=== PATIENT | male | born 1985 | race Caucasian/White ===

== ENCOUNTER 2016-05-27 15:35 | Inpatient (IN) | payer OTHER, MEDICARE ==
[~2016-05-27] VITALS: Ht 182.9 cm; Wt 113.0 kg
[~2016-05-27 15:35] MED LIST: BENT20TA PO; PANT20 PO
[2016-05-27 15:44] VITALS: BP 141/104; PULSE 114; RESP 16; TEMP 98.1; O2SAT 93
[2016-05-27] MEDS ORDERED: SODIUM CHLOR 0.9% 1000 ML INJ 1,000 ML IV SCH (16:54)
[2016-05-27 16:55] VITALS: BP 149/90; PULSE 102; RESP 18; O2SAT 98
[2016-05-27] MEDS ORDERED: PANTOPRAZOLE SODIUM 40 MG VIAL IVP ONE (17:00)
[2016-05-27] MEDS ORDERED: SODIUM CHLORIDE 0.9% FLUSH 5 ML FLUSH IVF PRN ×2 (17:00→17:30)
[2016-05-27] MEDS ORDERED: ONDANSETRON HCL 4 MG/2 ML VIAL IV PUSH ONE (17:00)
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
[2016-05-27 17:15] VITALS: O2SAT 98
[2016-05-27 17:20] LABS: CHLORIDE 107 MEQ/L (98-107); POTASSIUM 3.8 MEQ/L (3.5-5.1); SODIUM (NA) 145 MEQ/L (136-145)
[2016-05-27 17:21] LABS: HEMATOCRIT 41.5 % (39.0-51.0); MEAN CELL VOLUME 85.1 FL (80.0-100.0); MEAN CORPUSCULAR HGB CONC 32.9 % (32.0-36.0); RED BLOOD COUNT 4.88 MIL/MM3 (4.50-5.90); RED CELL DISTRIBUTION WIDTH 16.5 % (11.6-17.2); WHITE BLOOD COUNT 5.1 TH/MM3 (4.0-11.0)
[2016-05-27 17:24] LABS: ANION GAP 10 MEQ/L (5-15); BICARBONATE 28.1 MEQ/L (21.0-32.0); BLOOD UREA NITROGEN 6 MG/DL (7-18)
[2016-05-27 17:25] LABS: INTERNATIONAL NORMALIZED RATIO 1.3 RATIO; PROTHROMBIN TIME - PATIENT 14.3 SEC (9.8-11.6)
[2016-05-27 17:27] LABS: ALT (GPT) 103 U/L (12-78); AST (GOT) 233 U/L (15-37); GLOMERULAR FILTRATION RATE 125 ML/MIN (>89)
[2016-05-27 17:28] LABS: TOTAL BILIRUBIN ADULT 2.3 MG/DL (0.2-1.0)
[2016-05-27 17:29] LABS: ALKALINE PHOSPHATASE 96 U/L (45-117)
[2016-05-27 17:30] LABS: HEMO FLAGS AUTO DIFF; PLATELET COUNT 83 TH/MM3 (150-450)
--- NOTE | 2016-05-27 17:52 | RADHPO ---
EXAM DATE/TIME: 05/27/2016 17:27 [facility] COMPARISON: CHEST SINGLE AP, May 04, 2015, 20:09. INDICATIONS : Patient has had pain in abdomen for a week. Patient states has been diagnosed with cirrhosis. MEDICAL HISTORY : Hypertension. Diabetes SURGICAL HISTORY : None. ENCOUNTER: Initial ACUITY: 1 day PAIN SCORE: 9/10 LOCATION: Bilateral chest FINDINGS: The lungs are clear. Heart and pulmonary vascularity are normal. Repair of an old left clavicular f racture is noted. CONCLUSION: Negative chest for acute disease. Trip Philip MD FACR on May 27, 2016 at 17:47 Board Certified Radiologist. This report was verified electronically.
[2016-05-27 17:57] LABS: PLATELET ESTIMATE SMEAR LOW (NORMAL); PLATELET MORPHOLOGY NORMAL (NORMAL); SCAN/DIFF AUTO DIFF CONFIRMED
[2016-05-27 18:01] LABS: AUTOMATED NEUTROPHIL # 2.3 TH/MM3 (1.8-7.7); BASOPHIL % 1.6 % (0.0-2.0); EOSINOPHIL # 0.1 TH/MM3 (0-0.4); EOSINOPHIL % 2.4 % (0.0-4.0); LYMPH % 41.2 % (9.0-44.0); LYMPHOCYTE # 2.2 TH/MM3 (1.0-4.8); MONO % 10.2 % (0.0-8.0); NEUT % 44.6 % (16.0-70.0)
[2016-05-27 18:02] LABS: BASOPHIL # 0.1 TH/MM3 (0-0.2); NEUTROPHIL # MANUAL DIFF 2.3 TH/MM3 (1.8-7.7)
[2016-05-27] MEDS: OCTREOTIDE INJ 500 MCG in SODIUM CHLORID 0.9% 500 ML INJ 500 ML IV SCH (18:09)
[2016-05-27] MEDS: PANTOPRAZOLE INJ 80 MG in SODIUM CHLORIDE 0.9% INJ 100 ML IV SCH (18:43)
[2016-05-27 18:45] VITALS: BP 139/91; PULSE 94; RESP 18; O2SAT 94
--- NOTE | 2016-05-27 19:04 | RADHPO ---
EXAM DATE/TIME: 05/27/2016 18:18 [facility] COMPARISON: No previous studies available for comparison. INDICATIONS : Diffuse abdominal pain. IV CONTRAST: 95 cc Omnipaque 350 (iohexol) IV ORAL CONTRAST: No oral contrast ingested. RADIATION DOSE: 21.36 CTDIvol (mGy) MEDICAL HISTORY : Hepatitis C. Hypertension. Cirrhosis. SURGICAL HISTORY : None. ENCOUNTER: Initial ACUITY: 1 day PAIN SCALE: 8/10 LOCATION: Abdomen. TECHNIQUE: Volumetric scanning of the abdomen and pelvis was performed. Using automated exposure control and ad justment of the mA and/or kV according to patient size, radiation dose was kept as low as reasonably achievable to obtain optimal diagnostic quality images. FINDINGS: Lung bases demonstrate minimal dependent atelectasis. No acute bony abnormality. There is diffuse fatty liver. Spleen, adrenals, kidneys and pancreas unremarkable. No calcified galls tones or biliary ductal dilatation. There is mural thickening of the left colon characteristic of a mild left-sided colitis. No bowel obs truction. No free air or free fluid. There is recanalization of the periumbilical veins and some distal esophageal varices characteristic of portal venous hypertension. CONCLUSION: 1. Hepatic steatosis and heterogeneous appearance likely related to liver cirrhosis and portal hypert ension associated with periumbilical and esophageal varices. 2. Mild left-sided colitis. No obstruction, free fluid or free air. Blu Brizuela MD on May 27, 2016 at 18:58 Board Certified Radiologist. This report was verified electronically.
--- NOTE | 2016-05-27 19:29 | PD ---
Physical Exam Time Seen by Provider: 19:[address] Tobar with this patient with me to make a disposition, admission to [facility] likely. She had already discussed the patient with Dr. Berumen. He recommended the patient be sent to [facility] in case he did have significant bleeding over the weekend. He does have a history of esophageal varices. Data Data Last Documented VS Vital Signs Date Time Temp Pulse Resp B/P Pulse Ox O2 Delivery O2 Flow Rate FiO2 05/27/16 18:45 94 18 139/91 94 Room Air 05/27/16 15:44 98.1 Orders Complete Blood Count With Diff (05/27/16 16:54) Comprehensive Metabolic Panel (05/27/16 16:54) Lipase (05/27/16 16:54) Prothrombin Time / Inr (Pt) (05/27/16 16:54) Act Partial Throm Time (Ptt) (05/27/16 16:54) Urinalysis - C+S If Indicated (05/27/16 16:54) Ct Abd/Pel W Iv Contrast(Rout) (05/27/16 16:54) Iv Access Insert/Monitor (05/27/16 16:54) Ecg Monitoring (05/27/16 16:54) Oximetry (05/27/16 16:54) Pantoprazole Inj (Protonix Inj) (05/27/16 17:00) Sodium Chlor 0.9% 1000 Ml Inj (Ns 1000 M (05/27/16 16:54) Sodium Chloride 0.9% Flush (Ns Flush) (05/27/16 17:00) Electrocardiogram (05/27/16 16:54) Ondansetron Inj (Zofran Inj) (05/27/16 17:00) Alcohol (Ethanol) (05/27/16 16:56) Type And Screen (05/27/16 16:56) Chest, Single Ap (05/27/16 ) Sodium Chloride 0.9% Flush (Ns Flush) (05/27/16 17:30) Octreotide Inj (Sandostatin Inj) (05/27/16 17:30) Pantoprazole Inj (Protonix Inj) (05/27/16 17:30) Consult Gastroenterology (05/27/16 ) (Hub Use Only)Inp Phy Cons/Ref (05/27/16 ) Admit To Inpatient (05/27/16 ) Vital Signs (Adult) Q4H (05/27/16 19:20) Activity Oob With Assistance (05/27/16 19:20) ^ Welder And Fitter / Telemetry .CONTINUOUS (05/27/16 19:20) Intake + Output LUCRETIA.QSHIFT (05/27/16 19:20) Diet Npo (05/28/16 Breakfast) Sodium Chlor 0.9% 1000 Ml Inj (Ns 1000 M (05/27/16 19:20) Sodium Chloride 0.9% Flush (Ns Flush) (05/27/16 19:30) Sodium Chloride 0.9% Flush (Ns Flush) (05/27/16 21:00) Ondansetron Inj (Zofran Inj) (05/27/16 19:30) Bisacodyl Supp (Dulcolax Supp) (05/27/16 19:30) Comprehensive Metabolic Panel (05/28/16 06:00) Complete Blood Count With Diff (05/28/16 06:00) Pharmacologic Contraindication (05/27/16 19:20) Morphine Inj (Morphine Inj) (05/27/16 19:30) Oxycodone (Roxicodone) (05/27/16 19:30) Inpatient Certification (05/27/16 ) ^ Initiate Protocol (05/27/16 19:20) ^ Instruction (05/27/16 19:20) Notify Md To Reorder (05/27/16 19:30) Chlorhexidine 2% Cloth (Chlorhexidine 2% (05/28/16 04:00) Chlorhexidine 2% Cloth (Chlorhexidine 2% (05/27/16 19:30) Mrsa Pcr Surveillance (05/27/16 19:20) Consult Oceanographer Assistant (05/27/16 ) Labs Laboratory Tests Test 05/27/16 17:05 White Blood Count 5.1 TH/MM3 Red Blood Count 4.88 MIL/MM3 Hemoglobin 13.7 GM/DL Hematocrit 41.5 % Mean Corpuscular Volume 85.1 FL Mean Corpuscular Hemoglobin 28.0 PG Mean Corpuscular Hemoglobin 32.9 % Concent Red Cell Distribution Width 16.5 % Platelet Count 83 TH/MM3 Mean Platelet Volume 10.7 FL Neutrophils (%) (Auto) 44.6 % Lymphocytes (%) (Auto) 41.2 % Monocytes (%) (Auto) 10.2 % Eosinophils (%) (Auto) 2.4 % Basophils (%) (Auto) 1.6 % Neutrophils # (Auto) 2.3 TH/MM3 Lymphocytes # (Auto) 2.2 TH/MM3 Monocytes # (Auto) 0.5 TH/MM3 Eosinophils # (Auto) 0.1 TH/MM3 Basophils # (Auto) 0.1 TH/MM3 CBC Comment AUTO DIFF Neutrophils # (Manual) 2.3 TH/MM3 Differential Comment AUTO DIFF CONFIRMED Platelet Estimate LOW Platelet Morphology Comment NORMAL Red Cell Morphology Comment NORMAL Prothrombin Time 14.3 SEC Prothromb Time International 1.3 RATIO Ratio Activated Partial 32.0 SEC Thromboplast Time Sodium Level 145 MEQ/L Potassium Level 3.8 MEQ/L Chloride Level 107 MEQ/L Carbon Dioxide Level 28.1 MEQ/L Anion Gap 10 MEQ/L Blood Urea Nitrogen 6 MG/DL Creatinine 0.73 MG/DL Estimat Glomerular Filtration 125 ML/MIN Rate Random Glucose 100 MG/DL Calcium Level 9.1 MG/DL Total Bilirubin 2.3 MG/DL Aspartate Amino Transf 233 U/L (AST/SGOT) Alanine Aminotransferase 103 U/L (ALT/SGPT) Alkaline Phosphatase 96 U/L Total Protein 9.1 GM/DL Albumin 3.8 GM/DL Lipase 255 U/L Ethyl Alcohol Level 335 MG/DL Blood Type A POSITIVE Antibody Screen NEGATIVE MDM Medical Record Reviewed: Yes Supervised Visit with MICHAEL: Yes Differential Diagnosis Alcohol gastritis, bleeding from esophageal varices, alcohol intoxication, ulcer bleeding, anemia, electrolyte disorder, elevated liver enzymes, coagulopathy from cirrhosis, cirrhosis Narrative Course The patient may have alcohol gastritis at this time. He needs to be admitted because of the threat of sudden onset of massive bleeding with his varices. He also has cirrhosis with coagulopathy from the cirrhosis. I discussed the patient with Dr. Miranda, the patient will be admitted to [facility] in [facility]. Dr. De La Fuente will be consulting. Physician Communication Physician Communication I discussed the patient with Dr. Miranda. Diagnosis Primary Impression: GI bleed Additional Impressions: Alcohol abuse Cirrhosis with alcoholism Alcohol intoxication Coagulopathy Admitting Information Admitting Physician Requests: Admit Scripts Unable to Obtain Active Prescriptions or Reported Meds Edward Baeza MD May 27, 2016 19:29
[2016-05-27] MEDS ORDERED: MISCELLANEOUS NURSING INFORMATION XX SCH (19:30)
[2016-05-27] MEDS ORDERED: LORazepam 2 MG/ML VIAL IV PUSH PRN ×4 (19:30)
[2016-05-27] MEDS ORDERED: FLUMAZENIL 0.5 MG/5 ML VIAL IV PUSH PRN (19:30)
[2016-05-27] MEDS ORDERED: CHLORHEXIDINE GLUCONATE 2 % 1 PACK (2 CLOTHS) TOP PRN (19:30)
[2016-05-27] MEDS ORDERED: BISACODYL 10 MG SUPP PR PRN (19:30)
[2016-05-27] MEDS ORDERED: HALOPERIDOL LACTATE 5 MG/ML AMP IM PRN (19:30)
[2016-05-27] MEDS ORDERED: LORazepam 1 MG TAB PO PRN (19:30)
[2016-05-27] MEDS ORDERED: LORazepam 2 MG TAB PO PRN (19:30)
[2016-05-27] MEDS: SODIUM CHLOR 0.9% 1000 ML INJ 1,000 ML IV SCH (20:42)
[2016-05-27] MEDS: SODIUM CHLORIDE 0.9% FLUSH 5 ML FLUSH FLUSH SCH (21:00)
[2016-05-27 21:14] LABS: BLOOD, URINE NEG (NEG); GLUCOSE,URINE NEG (NEG); KETONE, URINE NEG (NEG); NITRITE,URINE NEG (NEG)
[2016-05-27 21:24] LABS: COMMENT (UR) CULT NOT INDICATED; CULTURE IF INDICATED CULT NOT INDICATED; METHOD OF COLLECTION VOIDED; URINE COLOR YELLOW (YELLW/STRAW); WBC, URINE 0-2 /hpf (0-5)
[2016-05-27 22:00] VITALS: BP 116/83; PULSE 85; RESP 16; TEMP 98.2; O2SAT 97
[2016-05-27] MEDS ORDERED: IOHEXOL 350 MG/ML 10 ML VIAL (for RAD DIAG) IV ONE (22:19)
[2016-05-27] MEDS: THIAMINE INJ 100 MG in SODIUM CHLORIDE 0.9% INJ 100 ML IV SCH (22:36)
[2016-05-27] MEDS: MULTIVITAMIN INJ 10 ML, FOLIC ACID INJ 1 MG in SODIUM CHLORID 0.9% 500 ML INJ 500 ML IV SCH (22:36)
[2016-05-27 23:33] VITALS: BP 118/84; PULSE 85; RESP 16; O2SAT 97; O2SAT 98
[2016-05-28] VITALS (9 sets, daily range): BP systolic 121–150; BP diastolic 74–95; PULSE 68–98; RESP 18–22; TEMP 97.1–98.2; O2SAT 94–98
[2016-05-28] MEDS: MORPHINE SULFATE 4 MG/ML INJ IV PRN ×6 (00:50→20:48)
[2016-05-28] MEDS: CHLORHEXIDINE GLUCONATE 2 % 1 PACK (2 CLOTHS) TOP SCH (03:20)
[2016-05-28] MEDS: PANTOPRAZOLE INJ 80 MG in SODIUM CHLORIDE 0.9% INJ 100 ML IV SCH ×3 (04:59→23:30)
[2016-05-28] MEDS: OCTREOTIDE INJ 500 MCG in SODIUM CHLORID 0.9% 500 ML INJ 500 ML IV SCH ×3 (05:00→23:30)
[2016-05-28] MEDS: SODIUM CHLOR 0.9% 1000 ML INJ 1,000 ML IV SCH ×2 (05:20→16:08)
[2016-05-28] MEDS: SODIUM CHLORIDE 0.9% FLUSH 5 ML FLUSH FLUSH SCH ×2 (08:43→20:48)
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
[2016-05-28 13:42] LABS: AUTOMATED NEUTROPHIL # 2.4 TH/MM3 (1.8-7.7); BASOPHIL # 0.1 TH/MM3 (0-0.2); EOSINOPHIL # 0.1 TH/MM3 (0-0.4); EOSINOPHIL % 2.1 % (0.0-4.0); HEMATOCRIT 38.8 % (39.0-51.0); LYMPHOCYTE # 1.4 TH/MM3 (1.0-4.8); MEAN CELL VOLUME 87.1 FL (80.0-100.0); MEAN CORPUSCULAR HEMOGLOBIN 28.9 PG (27.0-34.0); MEAN CORPUSCULAR HGB CONC 33.2 % (32.0-36.0); MONO % 12.2 % (0.0-8.0); NEUT % 52.7 % (16.0-70.0); PLATELET COUNT 70 TH/MM3 (150-450); RED BLOOD COUNT 4.46 MIL/MM3 (4.50-5.90); RED CELL DISTRIBUTION WIDTH 17.1 % (11.6-17.2); WHITE BLOOD COUNT 4.5 TH/MM3 (4.0-11.0)
[2016-05-28 13:49] LABS: HEMO FLAGS AUTO DIFF
[2016-05-28 14:10] LABS: ALKALINE PHOSPHATASE 94 U/L (45-117); ALT (GPT) 98 U/L (12-78); ANION GAP 10 MEQ/L (5-15); AST (GOT) 216 U/L (15-37); BICARBONATE 25.4 MEQ/L (21.0-32.0); BLOOD UREA NITROGEN 7 MG/DL (7-18); CHLORIDE 104 MEQ/L (98-107); GLOMERULAR FILTRATION RATE 111 ML/MIN (>89); POTASSIUM 3.9 MEQ/L (3.5-5.1); SODIUM (NA) 139 MEQ/L (136-145); TOTAL BILIRUBIN ADULT 2.6 MG/DL (0.2-1.0)
[2016-05-28 14:11] LABS: FERRITIN 90 NG/ML (26-388); TRANSFERRIN IRON PROFILE 286 MG/DL (200-360)
[2016-05-28 14:31] LABS: PLATELET ESTIMATE SMEAR LOW (NORMAL); PLATELET MORPHOLOGY NORMAL (NORMAL)
[2016-05-28 14:32] LABS: SCAN/DIFF AUTO DIFF CONFIRMED
[2016-05-28] MEDS: ONDANSETRON HCL 4 MG/2 ML VIAL IVP PRN (15:10)
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
[2016-05-28] MEDS: CIPROFLOXACIN 400 MG PREMIX 200 ML IV SCH (16:08)
[2016-05-28] MEDS: metroNIDAZOLE 500 MG INJ 100 ML IV SCH ×2 (16:08→23:55)
[2016-05-28 16:49] LABS: HEMATOCRIT 36.2 % (39.0-51.0)
[2016-05-28 16:53] LABS: REVIEW FLAG FINAL
[2016-05-28] MEDS: SODIUM CHLORIDE 0.9% FLUSH 5 ML FLUSH FLUSH PRN (20:48)
[2016-05-28] MEDS: MULTIVITAMIN INJ 10 ML, FOLIC ACID INJ 1 MG in SODIUM CHLORID 0.9% 500 ML INJ 500 ML IV SCH (22:01)
[2016-05-28] MEDS: THIAMINE INJ 100 MG in SODIUM CHLORIDE 0.9% INJ 100 ML IV SCH (22:01)
[2016-05-28 23:11] LABS: HEMATOCRIT 35.2 % (39.0-51.0)
[2016-05-28 23:21] LABS: REVIEW FLAG FINAL
[2016-05-29] VITALS (7 sets, daily range): BP systolic 121–140; BP diastolic 71–90; PULSE 72–82; RESP 18–20; TEMP 96.9–97.7; O2SAT 95–97
[2016-05-29] MEDS: SODIUM CHLORIDE 0.9% FLUSH 5 ML FLUSH FLUSH PRN ×3 (00:08→22:05)
[2016-05-29] MEDS: MORPHINE SULFATE 4 MG/ML INJ IV PRN ×7 (00:09→22:05)
[2016-05-29] MEDS: OCTREOTIDE INJ 500 MCG in SODIUM CHLORID 0.9% 500 ML INJ 500 ML IV SCH ×3 (00:46→19:30)
[2016-05-29] MEDS: SODIUM CHLOR 0.9% 1000 ML INJ 1,000 ML IV SCH ×4 (01:20→22:08)
[2016-05-29] MEDS: CHLORHEXIDINE GLUCONATE 2 % 1 PACK (2 CLOTHS) TOP SCH (04:00)
[2016-05-29] MEDS: CIPROFLOXACIN 400 MG PREMIX 200 ML IV SCH ×2 (04:55→15:11)
[2016-05-29] MEDS: PANTOPRAZOLE INJ 80 MG in SODIUM CHLORIDE 0.9% INJ 100 ML IV SCH ×3 (06:15→22:07)
[2016-05-29 07:02] LABS: HEMATOCRIT 36.4 % (39.0-51.0); MEAN CELL VOLUME 86.8 FL (80.0-100.0); MEAN CORPUSCULAR HEMOGLOBIN 29.4 PG (27.0-34.0); MEAN CORPUSCULAR HGB CONC 33.9 % (32.0-36.0); PLATELET COUNT 50 TH/MM3 (150-450); RED BLOOD COUNT 4.19 MIL/MM3 (4.50-5.90); RED CELL DISTRIBUTION WIDTH 17.4 % (11.6-17.2); WHITE BLOOD COUNT 3.4 TH/MM3 (4.0-11.0)
[2016-05-29 07:11] LABS: REVIEW FLAG FINAL
[2016-05-29 07:16] LABS: INTERNATIONAL NORMALIZED RATIO 1.4 RATIO; PROTHROMBIN TIME - PATIENT 15.2 SEC (9.8-11.6)
[2016-05-29 07:28] LABS: ALKALINE PHOSPHATASE 78 U/L (45-117); ALT (GPT) 72 U/L (12-78); ANION GAP 7 MEQ/L (5-15); AST (GOT) 140 U/L (15-37); BICARBONATE 26.9 MEQ/L (21.0-32.0); BLOOD UREA NITROGEN 7 MG/DL (7-18); CHLORIDE 103 MEQ/L (98-107); GLOMERULAR FILTRATION RATE 136 ML/MIN (>89); POTASSIUM 3.4 MEQ/L (3.5-5.1); SODIUM (NA) 137 MEQ/L (136-145); TOTAL BILIRUBIN ADULT 3.2 MG/DL (0.2-1.0)
[2016-05-29] MEDS: metroNIDAZOLE 500 MG INJ 100 ML IV SCH ×2 (08:49→15:11)
[2016-05-29] MEDS: SODIUM CHLORIDE 0.9% FLUSH 5 ML FLUSH FLUSH SCH ×2 (08:49→22:05)
[2016-05-29] MEDS ORDERED: POTASSIUM CHLORIDE 25 MEQ EFFERVESCENT TAB PO ONE (09:00)
[2016-05-29] MEDS: ONDANSETRON HCL 4 MG/2 ML VIAL IVP PRN (10:52)
[2016-05-29] MEDS ORDERED: PEG (High)/E-LYTE SOLN 4000 ML BTL PO ONE (16:00)
[2016-05-29] MEDS ORDERED: METOCLOPRAMIDE HCL 10 MG/2 ML VIAL IV PUSH ONE (16:15)
--- NOTE | 2016-05-29 16:22 | HHI.PR ---
Subjective Remarks The patient has been vomiting. He has been trying to drink the GoLYTELY prep. He has not noticed any blood in the vomitus. He has been ambulating. Discussed with nursing. Objective Vitals Vital Signs Date Time Temp Pulse Resp B/P Pulse Ox O2 Delivery O2 Flow Rate FiO2 05/29/16 15:19 97.4 73 18 128/79 97 05/29/16 11:47 97.7 82 19 121/86 97 05/29/16 09:55 96.9 72 18 140/90 96 05/29/16 08:00 74 05/29/16 04:15 97.6 76 20 121/79 95 05/28/16 23:59 97.1 78 20 121/80 97 05/28/16 20:04 84 05/28/16 19:30 98.2 78 22 150/95 94 05/28/16 16:55 97.7 84 22 136/85 97 I/O 05/28/16 05/28/16 05/28/16 05/29/16 05/29/16 05/29/16 07:00 15:00 23:00 07:00 15:00 23:00 Intake Total 2597 ml 2120 ml Output Total 1350 ml 1900 ml Balance 1247 ml 220 ml Intake Oral 120 ml 500 ml IV Total 2477 ml 1620 ml Output Urine Total 1350 ml 1900 ml Result Diagram: 05/29/16 0645 05/29/16 0645 Imaging Last Impressions Abdomen/Pelvis CT 05/27/16 1654 Signed Impressions: Service Date/Time: Friday, May 27, 2016 18:18 - CONCLUSION: 1. Hepatic steatosis and heterogeneous appearance likely related to liver cirrhosis and portal hypertension associated with periumbilical and esophageal varices. 2. Mild left-sided colitis. No obstruction, free fluid or free air. Blu Brizuela MD Objective Remarks GENERAL: This is a well-nourished, well-developed patient, in no apparent distress. SKIN: No rashes, ecchymoses or lesions. Cool and dry. HEAD: Atraumatic. Normocephalic. No temporal or scalp tenderness. EYES: Pupils equal round and reactive. Extraocular motions intact. No scleral icterus. No injection or drainage. ENT: Nose without bleeding, purulent drainage or septal hematoma. Throat without erythema, tonsillar hypertrophy or exudate. Uvula midline. Airway patent. NECK: Trachea midline. No JVD or lymphadenopathy. Supple, nontender, no meningeal signs. CARDIOVASCULAR: Regular rate and rhythm without murmurs, gallops, or rubs. RESPIRATORY: Clear to auscultation. Breath sounds equal bilaterally. No wheezes , rales, or rhonchi. GASTROINTESTINAL: Abdomen soft, diffusely tender to palpation. No guarding or rebound. MUSCULOSKELETAL: Trace edema in the lower extremities. NEUROLOGICAL: Awake and alert. Cranial nerves II through XII intact. Motor and sensory grossly within normal limits. Five out of 5 muscle strength in all muscle groups. Normal speech. Medications and IVs Current Medications Medications (Trade) Dose Ordered Sig/Rowan Route Start Time Stop Time Status Last Admin Octreotide Acetate 500 mcg/ Sodium Chloride 500.5 ml @ 50 mls/hr Q10H IV 05/27/16 17:30 05/29/16 10:57 Pantoprazole Sodium 80 mg/ Sodium Chloride 100 ml @ 10 mls/hr Q10H IV 05/27/16 17:30 05/29/16 15:12 (NS 1000 ml Inj) 1,000 ml @ 100 mls/hr Q10H IV 05/27/16 19:20 05/29/16 12:01 (NS Flush) 2 ml UNSCH PRN FLUSH 05/27/16 19:30 05/29/16 04:56 (NS Flush) 2 ml BID FLUSH 05/27/16 21:00 05/29/16 08:49 (Zofran Inj) 4 mg Q6H PRN IVP 05/27/16 19:30 05/29/16 10:52 (Dulcolax Supp) 10 mg DAILY PRN RI 05/27/16 19:30 (Morphine Inj) 2 mg Q3H PRN IV 05/27/16 19:30 05/29/16 15:12 (Roxicodone) 5 mg Q4H PRN PO 05/27/16 19:30 05/28/16 15:10 Miscellaneous Information 1 Q361D XX 05/27/16 19:30 05/27/16 19:30 (Chlorhexidine 2% Cloth) 3 pack Taper DAILY@04 TOP 05/28/16 04:00 05/24/17 03:59 Chlorhexidine Gluconate 3 pack 3 pack UNSCH PRN TOP 05/27/16 19:30 Multivitamins 10 ml/Folic Acid 1 mg/Sodium Chloride 510.2 ml @ 125 mls/hr Q24H IV 05/27/16 21:00 06/01/16 20:59 05/28/16 22:01 (Thiamine Inj/NS Inj) 101 ml @ 100 mls/hr Q24H IV 05/27/16 21:00 05/30/16 20:59 05/28/16 22:01 (Vitamin B1) 100 mg DAILY PO 05/30/16 09:00 (Ativan) 1 mg Q4H PRN PO 05/27/16 19:30 05/28/16 02:31 (Ativan Inj) 1 mg Q4H PRN IV PUSH 05/27/16 19:30 (Ativan) 2 mg Q2H PRN PO 05/27/16 19:30 (Ativan Inj) 2 mg Q2H PRN IV PUSH 05/27/16 19:30 (Ativan Inj) 2 mg Q1H PRN IV PUSH 05/27/16 19:30 (Ativan Inj) 2 mg Q15M PRN IV PUSH 05/27/16 19:30 Haloperidol Lactate 2 mg 2 mg Q15M PRN IM 05/27/16 19:30 Metronidazole 100 ml @ 100 mls/hr Q8H IV 05/28/16 16:00 05/29/16 15:11 (Cipro 400 Mg Premix) 200 ml @ 200 mls/hr Q12H IV 05/28/16 17:00 05/29/16 15:11 A/P Assessment and Plan GIB The patient presents with blood in his stool as well as blood in his vomitus. GI consult appreciated. - Clear liquid diet for now. GoLYTELY preparation started. - Octreotide and Protonix drips. - Likely EGD and colonoscopy on Monday. - Follow CBC and transfuse as needed. Liver cirrhosis/ abdominal pain/ nausea/ HCV The patient was diagnosed at [facility] last month. CT abdomen: Hepatic steatosis and heterogeneous appearance likely related to liver cirrhosis and portal hypertension associated with periumbilical and esophageal varices; Mild left- sided colitis; No obstruction, free fluid or free air. - Follow up with GI. - Pain control as needed. - Antiemetics as needed. - start Cipro/ Flagyl for colitis. - follow culture data. - alcohol cessation instruction. Thrombocytopenia Likely s/t cirrhosis. Platelet count has been decreasing. - trend CBC and transfuse as needed. Alcohol The pt says he quit but he recently binged. - [facility] protocol. - cessation instruction. Hypokalemia Secondary to nausea and vomiting. - Replete and monitor. PPx: SCDs; PPI Discharge Planning Awaiting clinical improvement. Hunter Ogden DO May 29, 2016 16:22
[2016-05-29] MEDS: MULTIVITAMIN INJ 10 ML, FOLIC ACID INJ 1 MG in SODIUM CHLORID 0.9% 500 ML INJ 500 ML IV SCH (22:05)
[2016-05-29] MEDS: THIAMINE INJ 100 MG in SODIUM CHLORIDE 0.9% INJ 100 ML IV SCH (22:06)
[2016-05-30] VITALS (8 sets, daily range): BP systolic 116–147; BP diastolic 66–96; PULSE 73–85; RESP 16–20; TEMP 95.8–98.3; O2SAT 95–97
[2016-05-30] MEDS: SODIUM CHLORIDE 0.9% FLUSH 5 ML FLUSH FLUSH PRN (03:27)
[2016-05-30] MEDS: MORPHINE SULFATE 4 MG/ML INJ IV PRN ×5 (03:29→20:34)
[2016-05-30] MEDS: metroNIDAZOLE 500 MG INJ 100 ML IV SCH ×3 (03:30→15:45)
[2016-05-30] MEDS: CHLORHEXIDINE GLUCONATE 2 % 1 PACK (2 CLOTHS) TOP SCH (03:31)
[2016-05-30] MEDS: CIPROFLOXACIN 400 MG PREMIX 200 ML IV SCH ×2 (04:33→16:46)
[2016-05-30 04:34] LABS: HEMATOCRIT 36.1 % (39.0-51.0); MEAN CELL VOLUME 87.3 FL (80.0-100.0); MEAN CORPUSCULAR HEMOGLOBIN 28.9 PG (27.0-34.0); MEAN CORPUSCULAR HGB CONC 33.1 % (32.0-36.0); PLATELET COUNT 52 TH/MM3 (150-450); RED BLOOD COUNT 4.13 MIL/MM3 (4.50-5.90); RED CELL DISTRIBUTION WIDTH 16.6 % (11.6-17.2); WHITE BLOOD COUNT 3.7 TH/MM3 (4.0-11.0)
[2016-05-30 04:35] LABS: REVIEW FLAG FINAL
[2016-05-30] MEDS: OCTREOTIDE INJ 500 MCG in SODIUM CHLORID 0.9% 500 ML INJ 500 ML IV SCH ×3 (04:35→15:46)
[2016-05-30 05:05] LABS: BICARBONATE 24.1 MEQ/L (21.0-32.0); MAGNESIUM 1.8 MG/DL (1.5-2.5); POTASSIUM 3.6 MEQ/L (3.5-5.1)
[2016-05-30] MEDS: PANTOPRAZOLE INJ 80 MG in SODIUM CHLORIDE 0.9% INJ 100 ML IV SCH ×2 (05:30→15:45)
[2016-05-30] MEDS: SODIUM CHLOR 0.9% 1000 ML INJ 1,000 ML IV SCH (08:23)
[2016-05-30] MEDS: THIAMINE HCL 100 MG TAB PO SCH (08:24)
[2016-05-30] MEDS: SODIUM CHLORIDE 0.9% FLUSH 5 ML FLUSH FLUSH SCH ×2 (09:00→21:00)
--- NOTE | 2016-05-30 09:32 | HHI.PR ---
Subjective Remarks Follow up for GI bleed. Patient did have episode of vomiting overnight, denies any more blood in his vomitus. He completed bowel prep, states his stools are clear and yellow. He has some lower abdominal cramping today, but feels slightly less because he slept poorly. Had quit alcohol for 1 month, but had a binge prior to admission. He denies any tremors or feelings of withdrawal. Going for EGD today. Objective Vitals Vital Signs Date Time Temp Pulse Resp B/P Pulse Ox O2 Delivery O2 Flow Rate FiO2 05/30/16 09:11 97.6 76 16 129/96 96 05/30/16 08:40 97.6 76 18 129/87 96 05/30/16 04:31 98.3 81 18 116/66 95 05/30/16 00:04 96.4 73 20 133/69 95 05/29/16 20:40 97.1 75 20 133/71 97 05/29/16 20:16 72 05/29/16 15:19 97.4 73 18 128/79 97 05/29/16 11:47 97.7 82 19 121/86 97 05/29/16 09:55 96.9 72 18 140/90 96 Result Diagram: 05/30/16 0417 05/30/16 0417 Imaging Last Impressions Abdomen/Pelvis CT 05/27/16 1654 Signed Impressions: Service Date/Time: Friday, May 27, 2016 18:18 - CONCLUSION: 1. Hepatic steatosis and heterogeneous appearance likely related to liver cirrhosis and portal hypertension associated with periumbilical and esophageal varices. 2. Mild left-sided colitis. No obstruction, free fluid or free air. Blu Brizuela MD Chest X-Ray 05/27/16 0000 Signed Impressions: Service Date/Time: Friday, May 27, 2016 17:27 - CONCLUSION: Negative chest for acute disease. Trip Philip MD FACR Objective Remarks GENERAL: Well-developed well-nourished. In no acute distress. SKIN: Warm and dry. No lesions noted. HEENT: Normocephalic. Pupils equal and round. Mucous membranes pink and moist. CARDIOVASCULAR: Regular rate and rhythm. No murmur appreciated. RESPIRATORY: No accessory muscle use. Clear to auscultation. Breath sounds equal bilaterally. GASTROINTESTINAL: Abdomen soft, generalized upper abdomen TTP, nondistended. Bowel sounds x4. MUSCULOSKELETAL: No obvious deformities. No clubbing or cyanosis. No edema. NEUROLOGICAL: Awake and alert. No focal neurological deficits. Moves upper and lower extremities spontaneously. Normal speech. PSYCHIATRIC: Appropriate mood and affect; insight and judgment normal. A/P Problem List: (1) GI bleed ICD Code: K92.2 Status: Acute (2) Cirrhosis with alcoholism ICD Code: K70.30 Status: Chronic (3) Abdominal pain ICD Code: R10.9 Status: Acute Assessment and Plan GIB The patient presents with blood in his stool as well as blood in his vomitus. GI consult appreciated. - Diet per GI - Octreotide and Protonix drips. - EGD and colonoscopy. - Follow CBC and transfuse as needed, blood count currently stable. - Supportive care, IVF, antiemetics Liver cirrhosis/ abdominal pain/ nausea/ HCV The patient was diagnosed at [facility] last month. CT abdomen: Hepatic steatosis and heterogeneous appearance likely related to liver cirrhosis and portal hypertension associated with periumbilical and esophageal varices; Mild left- sided colitis; No obstruction, free fluid or free air. - Follow up with GI. - Pain control as needed. - Antiemetics as needed. - Continue Cipro/ Flagyl for colitis. Thrombocytopenia Likely s/t cirrhosis. Platelet count stable overnight - trend CBC and transfuse as needed. Alcohol The pt says he quit but he recently binged. - [facility] protocol. - cessation counseling Hypokalemia Secondary to nausea and vomiting. -Replaced, within normal limits Hyperglycemia. Improved PPx: SCDs; PPI Written by Abdulkadir Esquivel, acting as scribe for Dr. Young on 05/30/16 at 09:32. The documentation accurately reflects the work performed [id number] by me on at [id number] Discharge Planning Disposition pending clinical course Problem Qualifiers (1) GI bleed: Qualified Code: K92.2 - Gastrointestinal hemorrhage, unspecified gastrointestinal hemorrhage type (2) Cirrhosis with alcoholism: Qualified Code: K70.30 - Alcoholic cirrhosis of liver without ascites (3) Abdominal pain: Qualified Code: R10.10 - Pain of upper abdomen Abdulkadir Esquivel May 30, 2016 09:32 Molina Young MD May 30, 2016 16:08
[2016-05-30 14:05] LABS: ANA SCREEN NEG (NEG)
[2016-05-30] MEDS ORDERED: PROPOFOL 200 MG/20 ML AMP IV ONE (16:51)
[2016-05-30] MEDS: MULTIVITAMIN INJ 10 ML, FOLIC ACID INJ 1 MG in SODIUM CHLORID 0.9% 500 ML INJ 500 ML IV SCH (20:35)
--- NOTE | 2016-05-30 23:01 | EKG ---
Date Performed: 05/27/2016 Time Performed: 17:06:26 PTAGE: 31 years EKG: Sinus rhythm Inferior T wave changes are nonspecific Borderline ECG PREVIOUS TRACING : 05/04/2015 20.28 Compared to the previous tracing, rate has decreased DOCTOR: Cuauhtemoc Soto Interpretating Date/Time 05/30/2016 22:59:23
[2016-05-31 00:12] VITALS: BP 124/65; PULSE 74; RESP 18; TEMP 98.3; O2SAT 99
[2016-05-31] MEDS: metroNIDAZOLE 500 MG INJ 100 ML IV SCH ×2 (00:16→08:15)
[2016-05-31] MEDS: MORPHINE SULFATE 4 MG/ML INJ IV PRN (02:45)
[2016-05-31] MEDS: CHLORHEXIDINE GLUCONATE 2 % 1 PACK (2 CLOTHS) TOP SCH (04:00)
[2016-05-31 04:15] VITALS: BP 155/91; PULSE 72; RESP 20; TEMP 97.6; O2SAT 94
[2016-05-31] MEDS: CIPROFLOXACIN 400 MG PREMIX 200 ML IV SCH (05:30)
[2016-05-31 07:01] LABS: AUTOMATED NEUTROPHIL # 2.3 TH/MM3 (1.8-7.7); BASOPHIL % 0.7 % (0.0-2.0); EOSINOPHIL # 0.2 TH/MM3 (0-0.4); EOSINOPHIL % 4.5 % (0.0-4.0); HEMATOCRIT 37.7 % (39.0-51.0); LYMPH % 26.6 % (9.0-44.0); LYMPHOCYTE # 1.1 TH/MM3 (1.0-4.8); MEAN CELL VOLUME 87.2 FL (80.0-100.0); MEAN CORPUSCULAR HEMOGLOBIN 29.4 PG (27.0-34.0); MEAN CORPUSCULAR HGB CONC 33.7 % (32.0-36.0); MONO % 12.8 % (0.0-8.0); NEUT % 55.4 % (16.0-70.0); PLATELET COUNT 58 TH/MM3 (150-450); RED BLOOD COUNT 4.32 MIL/MM3 (4.50-5.90); RED CELL DISTRIBUTION WIDTH 16.9 % (11.6-17.2); WHITE BLOOD COUNT 4.2 TH/MM3 (4.0-11.0)
[2016-05-31 07:04] LABS: HEMO FLAGS AUTO DIFF
[2016-05-31 07:17] LABS: BICARBONATE 24.8 MEQ/L (21.0-32.0); MAGNESIUM 1.7 MG/DL (1.5-2.5); POTASSIUM 3.6 MEQ/L (3.5-5.1)
[2016-05-31 08:00] VITALS: BP 123/77; PULSE 79; RESP 20; TEMP 97.1; O2SAT 97
[2016-05-31] MEDS: THIAMINE HCL 100 MG TAB PO SCH (08:14)
[2016-05-31] MEDS: SODIUM CHLORIDE 0.9% FLUSH 5 ML FLUSH FLUSH SCH (08:15)
--- NOTE | 2016-05-31 08:33 | HHI.PR ---
Subjective Remarks Follow-up hematemesis and diarrhea. Patient without recurrence of hematemesis and diarrhea. Tolerating by mouth. Soft BM today. Still having intermittent mild abdominal pain. Seen with mother. Discussed with RN Objective Vitals Vital Signs Date Time Temp Pulse Resp B/P Pulse Ox O2 Delivery O2 Flow Rate FiO2 05/31/16 04:15 97.6 72 20 155/91 94 05/31/16 03:35 20 05/31/16 00:12 98.3 74 18 124/65 99 05/30/16 21:07 98.0 75 20 134/77 96 05/30/16 15:55 96.1 81 18 143/96 96 05/30/16 11:27 95.8 85 19 147/83 97 05/30/16 11:10 76 16 133/69 95 05/30/16 10:58 95 16 140/87 95 05/30/16 10:51 97.8 97 16 137/87 94 05/30/16 09:11 97.6 76 16 129/96 96 05/30/16 08:40 97.6 76 18 129/87 96 I/O 05/30/16 05/30/16 05/30/16 05/31/16 05/31/16 05/31/16 07:00 15:00 23:00 07:00 15:00 23:00 Intake Total 400 ml Balance 400 ml Other 400 ml Result Diagram: 05/31/16 0641 05/31/16 0641 Imaging Last Impressions Abdomen/Pelvis CT 05/27/16 1654 Signed Impressions: Service Date/Time: Friday, May 27, 2016 18:18 - CONCLUSION: 1. Hepatic steatosis and heterogeneous appearance likely related to liver cirrhosis and portal hypertension associated with periumbilical and esophageal varices. 2. Mild left-sided colitis. No obstruction, free fluid or free air. Blu Brizuela MD Chest X-Ray 05/27/16 0000 Signed Impressions: Service Date/Time: Friday, May 27, 2016 17:27 - CONCLUSION: Negative chest for acute disease. Trip Philip MD FACR Objective Remarks GENERAL: This is a well-nourished, well-developed patient, in no apparent distress. CARDIOVASCULAR: Regular rate and rhythm without murmurs, gallops, or rubs. RESPIRATORY: Clear to auscultation. Breath sounds equal bilaterally. No wheezes , rales, or rhonchi. GASTROINTESTINAL: Abdomen soft, non-tender, nondistended. Normal active bowel sounds MUSCULOSKELETAL: Extremities without clubbing, cyanosis, or edema. NEURO: Alert & Oriented x4 to person, place, time, situation. Moves all ext x4 Procedures EGD and colonoscopy A/P Problem List: (1) GI bleed ICD Code: K92.2 Status: Acute (2) Cirrhosis with alcoholism ICD Code: K70.30 Status: Chronic (3) Abdominal pain ICD Code: R10.9 Status: Acute Assessment and Plan GIB The patient presents with blood in his stool as well as blood in his vomitus. GI consult appreciated. - Diet per GI -heart healthy - Octreotide and Protonix drips discontinued, continue by mouth PPI. - EGD and colonoscopy which showed gastritis and esophagitis status post biopsy , internal and external hemorrhoids. Antireflux mechanisms discussed with the patient. Follow up pathology. - Follow CBC and transfuse as needed, blood count currently stable. - Supportive care, IVF, antiemetics Liver cirrhosis/ abdominal pain/ nausea/ HCV The patient was diagnosed at [facility] last month. CT abdomen: Hepatic steatosis and heterogeneous appearance likely related to liver cirrhosis and portal hypertension associated with periumbilical and esophageal varices; Mild left- sided colitis; No obstruction, free fluid or free air. - Follow up with GI. - Pain control as needed. Counseled regarding narcotics - Antiemetics as needed. - Continue Cipro/ Flagyl for colitis, switch to by mouth. Stool studies ordered none submitted - Start beta magda Thrombocytopenia Likely s/t cirrhosis. Platelet count stable overnight - trend CBC and transfuse as needed. Alcohol The pt says he quit but he recently binged. - [facility] protocol. - cessation counseling Hypokalemia Secondary to nausea and vomiting. -Replaced, within normal limits Hyperglycemia. Improved PPx: SCDs; PPI Discharge Planning Stable for discharge Problem Qualifiers (1) GI bleed: Qualified Code: K92.2 - Gastrointestinal hemorrhage, unspecified gastrointestinal hemorrhage type (2) Cirrhosis with alcoholism: Qualified Code: K70.30 - Alcoholic cirrhosis of liver without ascites (3) Abdominal pain: Qualified Code: R10.10 - Pain of upper abdomen Molina Young MD May 31, 2016 08:33
[2016-05-31] MEDS ORDERED: CIPR-9 PO (08:35)
[2016-05-31] MEDS ORDERED: METR-1 PO (08:35)
[2016-05-31] MEDS ORDERED: PANT40TA3 PO (08:35)
[2016-05-31] MEDS ORDERED: OXYC-392 PO (08:35)
--- NOTE | 2016-05-31 08:35 | HHI.DCPOC ---
Discharge Care Plan Diagnosis: (1) Cirrhosis with alcoholism (2) GI bleed Your Health Problems Are: Difficulty with ADL Exercise Tolerance Goals to Promote Your Health * To prevent worsening of your condition and complications * To maintain your health at the optimal level Directions to Meet Your Goals Take your medications as prescribed Follow your dietary instruction Follow activity as directed Keep your appointments as scheduled Take your immunizations and boosters as scheduled If your symptoms worsen call your PCP, if no PCP go to Urgent Care Center or Emergency Room Smoking is Dangerous to Your Health. Avoid second hand smoke Call the 24-hour hour crisis hotline for domestic abuse at Molina Young MD May 31, 2016 08:35
--- NOTE | 2016-05-31 08:37 | HHI.DS ---
Discharge Summary Admission Date May 27, 2016 at 19:32 Discharge Date: May 31, 2016 Admitting Diagnosis GI bleed, cirrhosis, alcohol abuse, history of esophageal varices (1) GI bleed ICD Code: K92.2 Diagnosis: Principal (2) Cirrhosis with alcoholism ICD Code: K70.30 Diagnosis: Principal (3) Abdominal pain ICD Code: R10.9 Diagnosis: Principal Procedures EGD and colonoscopy Brief History - From Admission The patient is a 31-year-old male recently diagnosed with cirrhosis of the liver and hepatitis C who is presenting to the hospital with severe abdominal pain as well as blood and his stool and vomitus. The patient says that he was having severe abdominal pain and went to [facility] last month where he stayed for 8 days. He said at that time they diagnosed him with cirrhosis of the liver, hepatitis C, pancreatitis and gastritis. He was discharged and was supposed to follow up with a wood barker but was never able to reach that appointment because of severe abdominal pain. The patient says that he has had abdominal pain since being discharged from [facility] but it has gotten worse over the past 3-4 days. The pain is rated as a 9 out of 10 in severity and is located in the flanks as well as the epigastric area. He says the pain comes and goes. He believes certain foods can make it worse. He has noticed blood in his stool. He says his stool appears dark but sometimes there is red blood in there and sometimes there is enough of it to turn the toilet bowl red. He says he has had a couple episodes of vomiting with blood in it. He says the pain medications are currently helping. He is currently tolerating a clear liquid diet. CBC/BMP: 05/31/16 0641 05/31/16 0641 Significant Findings Laboratory Tests Test 05/28/16 05/28/16 05/28/16 05/29/16 13:23 16:43 22:52 06:45 Red Blood Count 4.46 MIL/MM3 4.19 MIL/MM3 (4.50-5.90) (4.50-5.90) Hemoglobin 12.9 GM/DL 12.2 GM/DL 11.8 GM/DL 12.3 GM/DL (13.0-17.0) (13.0-17.0) (13.0-17.0) (13.0-17.0) Hematocrit 38.8 % 36.2 % 35.2 % 36.4 % (39.0-51.0) (39.0-51.0) (39.0-51.0) (39.0-51.0) Platelet Count 70 TH/MM3 50 TH/MM3 (150-450) (150-450) Monocytes (%) (Auto) 12.2 % (0.0-8.0) Platelet Estimate LOW (NORMAL) Calcium Level 8.4 MG/DL 8.3 MG/DL (8.5-10.1) (8.5-10.1) Iron Level 176 MCG/DL (65-175) Total Bilirubin 2.6 MG/DL 3.2 MG/DL (0.2-1.0) (0.2-1.0) Aspartate Amino Transf 216 U/L (15-37) 140 U/L (15-37) (AST/SGOT) Alanine Aminotransferase 98 U/L (12-78) (ALT/SGPT) Total Protein 8.4 GM/DL (6.4-8.2) Hepatitis C Antibody REACTIVE (NEGATIVE) White Blood Count 3.4 TH/MM3 (4.0-11.0) Red Cell Distribution Width 17.4 % (11.6-17.2) Prothrombin Time 15.2 SEC (9.8-11.6) Potassium Level 3.4 MEQ/L (3.5-5.1) Random Glucose 121 MG/DL (74-106) Albumin 3.0 GM/DL (3.4-5.0) Test 05/30/16 05/31/16 04:17 06:41 White Blood Count 3.7 TH/MM3 (4.0-11.0) Red Blood Count 4.13 MIL/MM3 4.32 MIL/MM3 (4.50-5.90) (4.50-5.90) Hemoglobin 12.0 GM/DL 12.7 GM/DL (13.0-17.0) (13.0-17.0) Hematocrit 36.1 % 37.7 % (39.0-51.0) (39.0-51.0) Platelet Count 52 TH/MM3 58 TH/MM3 (150-450) (150-450) Calcium Level 8.4 MG/DL (8.5-10.1) Monocytes (%) (Auto) 12.8 % (0.0-8.0) Eosinophils (%) (Auto) 4.5 % (0.0-4.0) Random Glucose 115 MG/DL (74-106) Imaging Last Impressions Abdomen/Pelvis CT 05/27/16 1654 Signed Impressions: Service Date/Time: Friday, May 27, 2016 18:18 - CONCLUSION: 1. Hepatic steatosis and heterogeneous appearance likely related to liver cirrhosis and portal hypertension associated with periumbilical and esophageal varices. 2. Mild left-sided colitis. No obstruction, free fluid or free air. Blu Brizuela MD Chest X-Ray 05/27/16 0000 Signed Impressions: Service Date/Time: Friday, May 27, 2016 17:27 - CONCLUSION: Negative chest for acute disease. Trip Philip MD FACR PE at Discharge GENERAL: This is a well-nourished, well-developed patient, in no apparent distress. CARDIOVASCULAR: Regular rate and rhythm without murmurs, gallops, or rubs. RESPIRATORY: Clear to auscultation. Breath sounds equal bilaterally. No wheezes , rales, or rhonchi. GASTROINTESTINAL: Abdomen soft, non-tender, nondistended. Normal active bowel sounds MUSCULOSKELETAL: Extremities without clubbing, cyanosis, or edema. NEURO: Alert & Oriented x4 to person, place, time, situation. Moves all ext x4 Hospital Course GIB The patient presents with blood in his stool as well as blood in his vomitus. GI consult appreciated. - Diet per GI -heart healthy - Octreotide and Protonix drips discontinued, continue by mouth PPI. - EGD and colonoscopy which showed gastritis and esophagitis status post biopsy , internal and external hemorrhoids. Antireflux mechanisms discussed with the patient. Follow up pathology. - Follow CBC and transfuse as needed, blood count currently stable. - Supportive care, IVF, antiemetics Liver cirrhosis/ abdominal pain/ nausea/ HCV The patient was diagnosed at [facility] last month. CT abdomen: Hepatic steatosis and heterogeneous appearance likely related to liver cirrhosis and portal hypertension associated with periumbilical and esophageal varices; Mild left- sided colitis; No obstruction, free fluid or free air. - Follow up with GI. - Pain control as needed. Counseled regarding narcotics - Antiemetics as needed. - Continue Cipro/ Flagyl for colitis, switch to by mouth. Stool studies ordered none submitted - Start beta magda Thrombocytopenia Likely s/t cirrhosis. Platelet count stable overnight - trend CBC and transfuse as needed. Alcohol The pt says he quit but he recently binged. - [facility] protocol. - cessation counseling Hypokalemia Secondary to nausea and vomiting. -Replaced, within normal limits Hyperglycemia. Improved PPx: SCDs; PPI Pt Condition on Discharge: Stable Discharge Disposition: Discharge Home Discharge Time: <= 30 minutes Discharge Instructions DIET: Follow Instructions for: Heart Healthy Diet Activities you can perform: Regular-No Restrictions Activities to Avoid: Driving Follow up Referrals: Gastroenterology - 1 Week PCP Follow-up - 1 Week New Medications: Ciprofloxacin (Cipro) 500 Mg Tab 500 MG PO BID Infection #20 Ref 0 TAB Metronidazole (Flagyl) 500 Mg Tab 500 MG PO QID Infection #40 Ref 0 TAB Oxycodone (Oxycodone) 5 Mg Tab 5 MG PO Q6HR PRN pain #20 TAB Pantoprazole (Pantoprazole) 40 Mg Tab 40 MG PO DAILY Manage Heartburn #30 TAB Molina Young MD May 31, 2016 08:37
[2016-05-31] MEDS ORDERED: PANTOPRAZOLE SOD 40 MG DELAYED RELEASE TAB PO SCH (09:00)
[2016-05-31 09:02] LABS: PLATELET ESTIMATE SMEAR LOW (NORMAL); PLATELET MORPHOLOGY ENLARGED (NORMAL); SCAN/DIFF AUTO DIFF CONFIRMED
[2016-05-31] MEDS: ONDANSETRON HCL 4 MG/2 ML VIAL IVP PRN (11:16)
[2016-05-31 12:27] VITALS: BP 109/70; PULSE 75; RESP 20; TEMP 97.2; O2SAT 99
[2016-05-31 13:34] VITALS: RESP 16
[2016-06-01 03:55] LABS: MITOCHONDRIAL ABS LESS THAN 20.0 U (())
[2016-06-01 09:56] LABS: HCV RNA PCR IU/ML 119 IU/mL (()); HCV RNA PCR LOGIU/ML 2.08 (())
[2016-06-01 19:54] LABS: HEPATITIS C RNA GENOTYPE GENOTYPE 1a (())
== END 2016-05-31 16:52 | disposition home or self-care (01) | DRG 378 ==
LOC: PHED 15:35 → PHEDA 19:32 → NEPFCDU 05-28 00:24
PROVIDERS: ADMIT Internal Medicine; ATTEND Internal Medicine
PROC: 0DBK8ZX Excision of Ascending Colon, Via Natural or Artificial Opening Endoscopic, Diagnostic (ICD-10-PCS; 2016-05-30)
PROC: 0DBM8ZX Excision of Descending Colon, Via Natural or Artificial Opening Endoscopic, Diagnostic (ICD-10-PCS; 2016-05-30)
PROC: 0DB38ZX Excision of Lower Esophagus, Via Natural or Artificial Opening Endoscopic, Diagnostic (ICD-10-PCS; principal; 2016-05-30 10:00)
PROC: 0DB68ZX Excision of Stomach, Via Natural or Artificial Opening Endoscopic, Diagnostic (ICD-10-PCS; 2016-05-30 10:00)
DX: K92.2 Gastrointestinal hemorrhage, unspecified (principal); D68.4 Acquired coagulation factor deficiency; K76.6 Portal hypertension; E11.65 Type 2 diabetes mellitus with hyperglycemia; K51.50 Left sided colitis without complications; K70.30 Alcoholic cirrhosis of liver without ascites; I10 Essential (primary) hypertension; F32.9 Major depressive disorder, single episode, unspecified; B19.20 Unspecified viral hepatitis C without hepatic coma; R53.1 Weakness; F90.9 Attention-deficit hyperactivity disorder, unspecified type; F41.9 Anxiety disorder, unspecified; J45.909 Unspecified asthma, uncomplicated; Z87.891 Personal history of nicotine dependence; Y90.8 Blood alcohol level of 240 mg/100 ml or more; K44.9 Diaphragmatic hernia without obstruction or gangrene; K29.70 Gastritis, unspecified, without bleeding; K64.8 Other hemorrhoids; F10.229 Alcohol dependence with intoxication, unspecified; Z87.820 Personal history of traumatic brain injury; Z80.0 Family history of malignant neoplasm of digestive organs; E87.6 Hypokalemia; K20.9 Esophagitis, unspecified; K64.4 Residual hemorrhoidal skin tags
CPT/HCPCS: 71010; 74177; 80048; 80053; 80074; 80320; 81001; 82103; 82105; 82390; 82728; 82948; 83520; 83540; 83550; 83690; 83735; 85014; 85018; 85025; 85027; 85610; 85730; 86038; 86256; 86850; 86900; 86901; 87522; 87641; 87902; 88305; 88312; 93005; 96361; 96365; 96375; C9113; J0744; J2270; J2354; J2405; J2765; J3411; J7030; J7040; Q9967

== ENCOUNTER 2016-06-19 18:01 | Observation (INO) | payer OTHER ==
[~2016-06-19] VITALS: Ht 182.9 cm; Wt 107.0 kg
[~2016-06-19 18:01] MED LIST changes: -BENT20TA PO; +CIPR-9 PO; +METR-1 PO; +OXYC-392 PO; -PANT20 PO; +PANT40TA3 PO
[2016-06-19 18:03] VITALS: BP 140/86; PULSE 96; RESP 20; TEMP 98.1; O2SAT 94
[2016-06-19] MEDS ORDERED: PANT40TA3 PO (18:20)
[2016-06-19] MEDS ORDERED: TRAM50TA PO (18:20)
[2016-06-19] MEDS ORDERED: HYDR-3580 PO (18:20)
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
[2016-06-19] MEDS ORDERED: SODIUM CHLOR 0.9% 1000 ML INJ 1,000 ML IV SCH (18:25)
[2016-06-19] MEDS ORDERED: SODIUM CHLORIDE 0.9% FLUSH 5 ML FLUSH IVF PRN (18:30)
[2016-06-19 18:54] LABS: AUTOMATED NEUTROPHIL # 4.6 TH/MM3 (1.8-7.7); BASOPHIL # 0.1 TH/MM3 (0-0.2); BASOPHIL % 1.4 % (0.0-2.0); EOSINOPHIL # 0.1 TH/MM3 (0-0.4); EOSINOPHIL % 1.2 % (0.0-4.0); HEMO FLAGS DIFF FINAL; LYMPH % 27.5 % (9.0-44.0); LYMPHOCYTE # 2.1 TH/MM3 (1.0-4.8); MEAN CORPUSCULAR HEMOGLOBIN 29.4 PG (27.0-34.0); MEAN CORPUSCULAR HGB CONC 33.4 % (32.0-36.0); MONO % 9.9 % (0.0-8.0); PLATELET COUNT 136 TH/MM3 (150-450); RED BLOOD COUNT 4.66 MIL/MM3 (4.50-5.90); RED CELL DISTRIBUTION WIDTH 17.9 % (11.6-17.2); WHITE BLOOD COUNT 7.7 TH/MM3 (4.0-11.0)
[2016-06-19 19:06] LABS: APTT (PATIENT) 30.7 SEC (24.3-30.1); INTERNATIONAL NORMALIZED RATIO 1.2 RATIO
[2016-06-19 19:07] LABS: ANION GAP 15 MEQ/L (5-15)
[2016-06-19 19:10] LABS: ALKALINE PHOSPHATASE 99 U/L (45-117); ALT (GPT) 109 U/L (12-78); AST (GOT) 173 U/L (15-37); BLOOD UREA NITROGEN 7 MG/DL (7-18); CHLORIDE 107 MEQ/L (98-107); GLOMERULAR FILTRATION RATE 121 ML/MIN (>89); POTASSIUM 3.6 MEQ/L (3.5-5.1); SODIUM (NA) 144 MEQ/L (136-145); TOTAL BILIRUBIN ADULT 1.3 MG/DL (0.2-1.0)
[2016-06-19 19:37] VITALS: BP 135/71; PULSE 96; RESP 16; O2SAT 98
[2016-06-19] MEDS ORDERED: ONDANSETRON HCL 4 MG/2 ML VIAL IVP PRN (19:45)
[2016-06-19] MEDS ORDERED: HALOPERIDOL LACTATE 5 MG/ML AMP IM PRN (19:45)
[2016-06-19] MEDS ORDERED: BISACODYL 10 MG SUPP PR PRN (19:45)
[2016-06-19] MEDS ORDERED: LORazepam 2 MG TAB PO PRN (19:45)
[2016-06-19] MEDS ORDERED: SODIUM CHLORIDE 0.9% FLUSH 5 ML FLUSH FLUSH PRN (19:45)
[2016-06-19] MEDS ORDERED: LORazepam 2 MG/ML VIAL IV PUSH PRN ×4 (19:45)
[2016-06-19] MEDS ORDERED: FLUMAZENIL 0.5 MG/5 ML VIAL IV PUSH PRN (19:45)
[2016-06-19] MEDS ORDERED: SODIUM CHLOR 0.9% 1000 ML INJ 1,000 ML IV ONE (19:45)
[2016-06-19] MEDS ORDERED: LORazepam 1 MG TAB PO PRN (19:45)
--- NOTE | 2016-06-19 19:45 | HHI.HP ---
HPI Service [facility] Hospitalists Primary Care Physician Non-Staff Admission Diagnosis alcohol intoxication, major depression, suicidal ideation, hepatitis Diagnoses: (1) Alcohol abuse Diagnosis: Principal (2) Alcohol intoxication Diagnosis: Principal (3) Hematemesis Diagnosis: Principal (4) Coagulopathy Diagnosis: Principal (5) Suicidal ideation Diagnosis: Principal Travel History International Travel<30 Days: No Contact w/Intl Traveler <30 Da: No Traveled to Known Affected Are: No History of Present Illness This is a 31-year-old male with a PMH of ADHD, Alcohol Abuse, Cirrhosis, Hepatitis and h/o IVDU w/ Cocaine who was brought to the ER by his father after he found him unconscious at home, +intoxicated. Upon arrival to ER pt relaying suicidal ideation, currently under Carrion Act. C/o abdominal pain w/ episode of hematemesis, no heavy active bleeding. Recent admit 05/27-05/31/16 for GI Bleed and Cirrhosis s/p EGD/Colonoscopy 05/30/[address] Bell w/ gastritis and esophagitis, small internal hemorrhoids and external hemorrhoids. Pathology negative for H. pylori, negative for metaplasia. On arrival, BP 140/86, HR 96, O2 sat 94% on RA, Afebrile. CBC unremarkable except for thrombocytopenia. Platelets 136, previous 58 on 05/31/16. Chemistry at baseline. Alcohol 285. Review of Systems Except as stated in HPI: all other systems reviewed are Neg ROS: 14 point review of systems otherwise negative. Past Family Social History Past Medical History PMH: ADHD, Alcohol Abuse, Cirrhosis, Hepatitis and h/o IVDU w/ Cocaine Past Surgical History PAST SURGICAL HISTORY: Shoulder Surgery, Tonsillectomy Allergies: Coded Allergies: Penicillin (Verified Allergy, Severe, Hives, 06/19/16) Family History PAST FAMILY HISTORY: Reviewed. No h/o DM or CAD Social History PAST SOCIAL HISTORY: Drinks approximately 2L Vodka daily. +Vaporizer. H/o IVDU w/ Cocaine. +Marijuana. Physical Exam Vital Signs Vital Signs Date Time Temp Pulse Resp B/P Pulse Ox O2 Delivery O2 Flow Rate FiO2 06/19/16 19:37 96 16 135/71 98 Room Air 06/19/16 19:37 16 06/19/16 18:03 98.1 96 20 140/86 94 Room Air Physical Exam PE: GENERAL: Young white male in no acute distress. HEENT: PERRLA, EOMI. No scleral icterus or conjunctival pallor. No lid lag or facial droop. Oral mucosa is erythematous, no active bleeding. Towel blood- tinged CARDIOVASCULAR: Regular rate and rhythm. No obvious murmurs to auscultation. No chest tenderness to palpation. RESPIRATORY: No obvious rhonchi or wheezing. Clear to auscultation. Breath sounds equal bilaterally. GASTROINTESTINAL: Abdomen soft, non-tender, nondistended. BS normal. MUSCULOSKELETAL: Extremities without clubbing, cyanosis, or edema. No obvious deformities. NEUROLOGICAL: Awake, alert and oriented x4. No focal neurologic deficits. Moving both upper and lower extremities spontaneously. Laboratory Laboratory Tests Test 06/19/16 18:37 White Blood Count 7.7 Red Blood Count 4.66 Hemoglobin 13.7 Hematocrit 41.0 Mean Corpuscular Volume 88.0 Mean Corpuscular Hemoglobin 29.4 Mean Corpuscular Hemoglobin 33.4 Concent Red Cell Distribution Width 17.9 Platelet Count 136 Mean Platelet Volume 10.5 Neutrophils (%) (Auto) 60.0 Lymphocytes (%) (Auto) 27.5 Monocytes (%) (Auto) 9.9 Eosinophils (%) (Auto) 1.2 Basophils (%) (Auto) 1.4 Neutrophils # (Auto) 4.6 Lymphocytes # (Auto) 2.1 Monocytes # (Auto) 0.8 Eosinophils # (Auto) 0.1 Basophils # (Auto) 0.1 CBC Comment DIFF FINAL Differential Comment Prothrombin Time 13.0 Prothromb Time International 1.2 Ratio Activated Partial 30.7 Thromboplast Time Sodium Level 144 Potassium Level 3.6 Chloride Level 107 Carbon Dioxide Level 22.0 Anion Gap 15 Blood Urea Nitrogen 7 Creatinine 0.75 Estimat Glomerular Filtration 121 Rate Random Glucose 88 Calcium Level 9.1 Total Bilirubin 1.3 Aspartate Amino Transf 173 (AST/SGOT) Alanine Aminotransferase 109 (ALT/SGPT) Alkaline Phosphatase 99 Total Protein 9.5 Albumin 4.3 Lipase 245 Ethyl Alcohol Level 285 Result Diagram: 06/19/16183606/19/161836 Assessment and Plan Problem List: (1) Alcohol abuse ICD Code: F10.10 Status: Acute (2) Alcohol intoxication ICD Code: F10.129 Status: Acute (3) Hematemesis ICD Code: K92.0 Status: Acute (4) Coagulopathy ICD Code: D68.9 Status: Acute (5) Suicidal ideation ICD Code: R45.851 Status: Acute Assessment and Plan A/P: 1. Alcohol Abuse: w/ Acute Alcohol Intoxication. Drinks approx 2L Vodka per day, alcohol level 285. Seizure Precautions, CIWA Protocol, MVT/Thiamine/ Folate replacement. 2. Hematemesis: h/o Cirrhosis secondary to Hep C and Alcohol Abuse, recent admit for GI Bleed s/p EGD/Colonoscopy 05/30/[address] Bell w/ gastritis, esophagitis and hemorrhoids, no varices noted. Protonix IV. Hgb stable. Thrombocytopenia improved. No active bleeding at this time. Will monitor. Repeat labs in am. If stable, then medically cleared for Psych. 3. Coagulopathy: INR 1.2, secondary to cirrhosis, will monitor for bleeding. 4. Suicidal Ideation: s/p Carrion Act in ER. Consult Psych for further evaluation. 5. DVT Prophylaxis: Pharmacologic contraindication secondary to possible bleed. 6. Social work for d/c planning as needed. 7. Case discussed w/ ER physician at length. Problem Qualifiers (1) Alcohol intoxication: Qualified Code: F10.120 - Alcohol intoxication, uncomplicated Kaylee Miranda MD Jun 19, 2016 19:45
[2016-06-19] MEDS: SODIUM CHLORIDE 0.9% FLUSH 5 ML FLUSH FLUSH SCH (20:33)
[2016-06-19] MEDS: PANTOPRAZOLE SODIUM 40 MG VIAL IV PUSH SCH (20:33)
[2016-06-19] MEDS: MORPHINE SULFATE 4 MG/ML INJ IV PRN ×2 (20:34→23:36)
[2016-06-19] MEDS ORDERED: THIAMINE INJ 100 MG in SODIUM CHLORIDE 0.9% INJ 100 ML IV SCH (21:00)
[2016-06-19] MEDS ORDERED: MULTIVITAMIN INJ 10 ML, FOLIC ACID INJ 1 MG in SODIUM CHLORID 0.9% 500 ML INJ 500 ML IV SCH (21:00)
[2016-06-19 21:19] VITALS: BP 139/70; PULSE 106; RESP 18; TEMP 98.2; O2SAT 93
[2016-06-19 23:08] VITALS: BP 133/67; PULSE 109; RESP 18; TEMP 98.2; O2SAT 93
[2016-06-20 00:38] LABS: BLOOD, URINE NEG (NEG); GLUCOSE,URINE NEG (NEG); KETONE, URINE 10 mg/dL (NEG); MUCUS URINE FEW /lpf (OCC); NITRITE,URINE NEG (NEG); URINE COLOR YELLOW (YELLW/STRAW)
[2016-06-20 00:39] LABS: COMMENT (UR) CULT NOT INDICATED; CULTURE IF INDICATED CULT NOT INDICATED
[2016-06-20 04:34] VITALS: BP 122/59; PULSE 94; RESP 20; TEMP 98.2; O2SAT 94
[2016-06-20 07:33] LABS: INTERNATIONAL NORMALIZED RATIO 1.3 RATIO; PROTHROMBIN TIME - PATIENT 14.1 SEC (9.8-11.6)
[2016-06-20 07:34] LABS: AUTOMATED NEUTROPHIL # 2.4 TH/MM3 (1.8-7.7); BASOPHIL # 0.1 TH/MM3 (0-0.2); EOSINOPHIL # 0.1 TH/MM3 (0-0.4); EOSINOPHIL % 1.7 % (0.0-4.0); HEMATOCRIT 32.9 % (39.0-51.0); LYMPH % 34.1 % (9.0-44.0); LYMPHOCYTE # 1.6 TH/MM3 (1.0-4.8); MEAN CELL VOLUME 87.6 FL (80.0-100.0); MEAN CORPUSCULAR HGB CONC 33.2 % (32.0-36.0); MONO % 10.6 % (0.0-8.0); NEUT % 51.6 % (16.0-70.0); PLATELET COUNT 77 TH/MM3 (150-450); RED BLOOD COUNT 3.76 MIL/MM3 (4.50-5.90); RED CELL DISTRIBUTION WIDTH 17.8 % (11.6-17.2); WHITE BLOOD COUNT 4.6 TH/MM3 (4.0-11.0)
[2016-06-20 07:42] LABS: HEMO FLAGS AUTO DIFF
[2016-06-20 07:51] LABS: ALKALINE PHOSPHATASE 72 U/L (45-117); ALT (GPT) 88 U/L (12-78); ANION GAP 10 MEQ/L (5-15); AST (GOT) 154 U/L (15-37); BICARBONATE 24.4 MEQ/L (21.0-32.0); BLOOD UREA NITROGEN 7 MG/DL (7-18); CHLORIDE 109 MEQ/L (98-107); GLOMERULAR FILTRATION RATE 138 ML/MIN (>89); POTASSIUM 3.4 MEQ/L (3.5-5.1); SODIUM (NA) 143 MEQ/L (136-145); TOTAL BILIRUBIN ADULT 1.4 MG/DL (0.2-1.0)
[2016-06-20 08:06] VITALS: BP 116/70; PULSE 91; RESP 16; TEMP 98; O2SAT 96
[2016-06-20] MEDS: SODIUM CHLORIDE 0.9% FLUSH 5 ML FLUSH FLUSH SCH (09:00)
[2016-06-20 09:30] LABS: PLATELET ESTIMATE SMEAR LOW (NORMAL); PLATELET MORPHOLOGY NORMAL (NORMAL); SCAN/DIFF AUTO DIFF CONFIRMED
[2016-06-20] MEDS: PANTOPRAZOLE SODIUM 40 MG VIAL IV PUSH SCH (09:32)
[2016-06-20] MEDS ORDERED: POTASSIUM CHLORIDE 20 MEQ CONTROLLED RELEASE TAB PO ONE (11:00)
[2016-06-20] MEDS: MORPHINE SULFATE 4 MG/ML INJ IV PRN (11:19)
--- NOTE | 2016-06-20 11:29 | HHI.PR ---
Subjective Remarks Follow up for alcohol intoxication, hematemesis, suicidal ideation, Carrion Act. The patient is AAOx4. The patient denies any suicidal ideations. He states he recalls voicing that he was depressed because of his abdominal pain and vomiting but has no suicidal ideation/plan. Had some mild nausea after his meal , however denies any further episodes of vomiting/hematemesis. Has some slight epigastric abdominal discomfort. He was able to tolerate his meal. No fevers/ chills. His mother is at bedside. Thoroughly discussed alcohol cessation. Objective Vitals Vital Signs Date Time Temp Pulse Resp B/P Pulse Ox O2 Delivery O2 Flow Rate FiO2 06/20/16 08:06 98.0 91 16 116/70 96 06/20/16 04:34 98.2 94 20 122/59 94 06/19/16 23:08 98.2 109 18 133/67 93 06/19/16 21:19 98.2 106 18 139/70 93 06/19/16 19:37 96 16 135/71 98 Room Air 06/19/16 19:37 16 06/19/16 18:03 98.1 96 20 140/86 94 Room Air I/O 06/19/16 06/19/16 06/19/16 06/20/16 06/20/16 06/20/16 07:00 15:00 23:00 07:00 15:00 23:00 Intake Total 720 ml Output Total 650 ml Balance 70 ml Intake Oral 720 ml Output Urine Total 650 ml Result Diagram: 06/20/16 0629 06/20/16 06 Objective Remarks GENERAL: Well-nourished, well-developed patient in NAD. SKIN: Warm and dry. No rash. HEAD: Normocephalic. Atraumatic. EYES: Pupils equal and round. No scleral icterus. No injection or drainage. ENT: No nasal bleeding or discharge. Mucous membranes pink and moist. NECK: Supple. Trachea midline. CARDIOVASCULAR: Regular rate and rhythm. S1, S2 noted. No murmur appreciated. RESPIRATORY: No accessory muscle use. Clear to auscultation. Breath sounds equal bilaterally. GASTROINTESTINAL: Abdomen soft, nondistended, minimal epigastric TTP. Normoactive bowel sounds x4. MUSCULOSKELETAL: No obvious deformities. Extremities without clubbing, cyanosis , or edema. NEUROLOGICAL: Awake and alert. No obvious cranial nerve deficits. Motor grossly within normal limits. Normal speech. PSYCHIATRIC: Appropriate mood and affect; insight and judgment normal. Medications and IVs Current Medications Medications (Trade) Dose Ordered Sig/Rowan Route Start Time Stop Time Status Last Admin IV Flush 2 ml 2 ml UNSCH PRN IVF 06/19/16 18:30 Multivitamins 10 ml/Folic Acid 1 mg/Sodium Chloride 510.2 ml @ 125 mls/hr Q24H IV 06/19/16 21:00 06/24/16 20:59 06/19/16 20:33 (Thiamine Inj/NS Inj) 101 ml @ 100 mls/hr Q24H IV 06/19/16 21:00 06/22/16 20:59 06/19/16 20:33 (Vitamin B1) 100 mg DAILY PO 06/23/16 09:00 (Romazicon Inj) 0.2 mg Q1M PRN IV PUSH 06/19/16 19:45 (Ativan) 1 mg Q4H PRN PO 06/19/16 19:45 06/20/16 00:44 (Ativan Inj) 1 mg Q4H PRN IV PUSH 06/19/16 19:45 06/19/16 20:34 (Ativan) 2 mg Q2H PRN PO 06/19/16 19:45 (Ativan Inj) 2 mg Q2H PRN IV PUSH 06/19/16 19:45 (Ativan Inj) 2 mg Q1H PRN IV PUSH 06/19/16 19:45 (Ativan Inj) 2 mg Q15M PRN IV PUSH 06/19/16 19:45 (Haldol Inj) 2 mg Q15M PRN IM 06/19/16 19:45 (Protonix Inj) 40 mg Q12H IV PUSH 06/19/16 21:00 06/20/16 09:32 (NS Flush) 2 ml UNSCH PRN FLUSH 06/19/16 19:45 (NS Flush) 2 ml BID FLUSH 06/19/16 21:00 (Zofran Inj) 4 mg Q6H PRN IVP 06/19/16 19:45 06/20/16 09:32 (Dulcolax Supp) 10 mg DAILY PRN OH 06/19/16 19:45 (Morphine Inj) 2 mg Q3H PRN IV 06/19/16 19:45 06/20/16 11:19 (Roxicodone) 5 mg Q4H PRN PO 06/19/16 19:45 A/P Problem List: (1) Alcohol abuse ICD Code: F10.10 Status: Acute (2) Alcohol intoxication ICD Code: F10.129 Status: Acute (3) Hematemesis ICD Code: K92.0 Status: Acute (4) Coagulopathy ICD Code: D68.9 Status: Acute (5) Suicidal ideation ICD Code: R45.851 Status: Acute Assessment and Plan 31-year-old male with a PMH of ADHD, Alcohol Abuse, Cirrhosis, Hepatitis and h/ o IVDU w/ Cocaine who was brought to the ER by his father after he found him unconscious at home, +intoxicated. Alcohol Abuse: w/ Acute Alcohol Intoxication. Drinks approx 2L Vodka per day, alcohol level 285. Seizure Precautions, CIWA Protocol, MVT/Thiamine/Folate replacement. No signs of withdrawal at this time. Hematemesis: h/o Cirrhosis secondary to Hep C and Alcohol Abuse, recent admit for GI Bleed s/p EGD/Colonoscopy 05/30/[address] Bell w/ gastritis, esophagitis and hemorrhoids, no varices noted. Protonix IV. Hgb stable. No active bleeding at this time. Monitor. Repeat labs are stable, slight drop in Hgb likely secondary to hemodilution. No further hematemesis overnight. Tolerating oral intake. Coagulopathy: INR 1.2, secondary to cirrhosis, will monitor for bleeding. Suicidal Ideation: s/p Carrion Act in ER. Consult Psych for further evaluation, seen by Dr. Leung, plan to lift Carrion Act. DVT Prophylaxis: Pharmacologic contraindication secondary to possible bleed. Written by Sobia Craig, acting as scribe for Dr. Hamm on 06/20/16 at 12:00. The documentation accurately reflects the work performed [id number] by me Dr. Hamm on 06/20/16 at 12:00. Discharge Planning Discharge patient to home Condition on discharge: Improved Regular Diet as tolerated Ad Мария activity Rx written: Protonix, Thiamine Follow-up with primary care physician and gastroenterology Follow up with alcohol detox such as [facility], resources provided by Case Management. Problem Qualifiers (1) Alcohol intoxication: Qualified Code: F10.120 - Alcohol intoxication, uncomplicated Sobia Craig PA-C Jun 20, 2016 11:29 Missy Hamm MD Jun 20, 2016 14:31
[2016-06-20 11:56] VITALS: BP 129/69; PULSE 89; RESP 20; TEMP 98.2; O2SAT 93
[2016-06-20] MEDS ORDERED: VITA100T2 PO (14:05)
[2016-06-20] MEDS ORDERED: PANT40TA3 PO (14:05)
--- NOTE | 2016-06-20 14:06 | HHI.DCPOC ---
Discharge Care Plan Diagnosis: (1) Alcohol intoxication (2) Alcohol abuse (3) Cirrhosis with alcoholism (4) Abdominal pain (5) Gastritis (6) Hemorrhoids Goals to Promote Your Health * To prevent worsening of your condition and complications * To maintain your health at the optimal level Directions to Meet Your Goals Take your medications as prescribed Follow your dietary instruction Follow activity as directed Keep your appointments as scheduled Take your immunizations and boosters as scheduled If your symptoms worsen call your PCP, if no PCP go to Urgent Care Center or Emergency Room Smoking is Dangerous to Your Health. Avoid second hand smoke Call the 24-hour hour crisis hotline for domestic abuse at Sobia Craig PA-C Jun 20, 2016 14:06 Missy Hamm MD Jun 21, 2016 15:54
--- NOTE | 2016-06-20 15:01 | PD.CONS ---
Provisional Diagnosis Admission Date Jun 19, 2016 at 19:30 [place] I. Alcohol-induced mood disorder, alcohol use disorder [place] II. Deferred [place] III. Hepatitis C, pancreatitis, cirrhosis [place] IV. History of substance use disorder [place] V. 55 History of Present Illness Service Psychiatry Consult Requested By Reason for Consult Suicidal ideation Primary Care Physician Non-Staff HPI The patient is a 31-year-old man, domicile with his father, single, part-time employed, with psychiatric history of ADHD, no previous psychiatric hospitalizations, no previous suicidal attempts, previously Carrion acted due drugs related problems, Alcohol Abuse, medical history of Cirrhosis, Hepatitis and h/o IVDU and cocaine, who was brought to the ER by his father after he found him unconscious at home, intoxicated. Upon arrival to ER pt relaying suicidal ideation, currently under Carrion Act. C/o abdominal pain w/ episode of hematemesis, no heavy active bleeding. Recent admit 05/27-05/31/16 for GI Bleed and Cirrhosis s/p EGD/Colonoscopy 05/30/[address] Bell w/ gastritis and esophagitis, small internal hemorrhoids and external hemorrhoids. Pathology negative for H. pylori, negative for metaplasia. On arrival, BP 140/86, HR 96, O2 sat 94% on RA, Afebrile. CBC unremarkable except for thrombocytopenia. Platelets 136, previous 58 on 05/31/16. Chemistry at baseline. BAL was 285. Patient was seen for psychiatric evaluation observational area of the ER, his mother was at bedside and served as a collateral information. On psychiatric evaluation patient was calm and cooperative, he explains that he came to the hospital for medical reasons. He explains that he was drinking alcohol yesterday, which is not common anymore, and he was drunk when he arrived in the ER. He doesn't remember stated that he wanted to commit suicide or he wanted to . He says that he doesn't want to , he actually wants to live, he wants to get better and continue his medical recommendations. At this moment the patient denies depressive symptoms, he denies anxiety, he denies perceptual disturbances, he denies suicidal or homicidal ideation, he denies visual and auditory hallucinations. Patient is clinically sober, oriented 3, no agitation , no aggressive behavior, no delusions or paranoia observed or reported. His mother, Karly Torres, is states that the patient has not been suicidal or depressed in the last weeks, she confirms that the patient came here for medical reasons and he has been very stressed out his underlying medical conditions. She feels safe taking him back home once medically clear. Review of Systems Constitutional: DENIES: Diaphoretic episodes, Fatigue, Fever, Weight gain, Weight loss, Chills, Dizziness, Change in appetite, Night Sweats Endocrine: DENIES: Heat/cold intolerance, Polydipsia, Polyuria, Polyphagia Eyes: DENIES: Blurred vision, Diplopia, Eye inflammation, Eye pain, Vision loss , Photosensitivity, Double Vision Respiratory: DENIES: Apneas, Cough, Snoring, Wheezing, Hemoptysis, Sputum production, Shortness of breath Cardiovascular: DENIES: Chest pain, Palpitations, Syncope, Dyspnea on Exertion , PND, Lower Extremity Edema, Orthopnea, Claudication Gastrointestinal: COMPLAINS OF: Abdominal pain, DENIES: Black stools, Bloody stools, Constipation, Diarrhea, Nausea, Vomiting, Difficulty Swallowing, Anorexia Musculoskeletal: DENIES: Joint pain, Muscle aches, Stiffness, Joint Swelling, Back pain, Neck pain Integumentary: DENIES: Abnormal pigmentation, Nail changes, Pruritus, Rash Hematologic/lymphatic: DENIES: Bruising, Lymphadenopathy Neurologic: DENIES: Abnormal gait, Headache, Localized weakness, Paresthesias, Seizures, Speech Problems, Tremor, Poor Balance Psychiatric: DENIES: Anxiety, Confusion, Mood changes, Depression, Hallucinations, Agitation, Suicidal Ideation, Homicidal Ideation, Delusions Past Family Social History Coded Allergies: Penicillin (Verified Allergy, Severe, Hives, 06/19/16) Active Scripts Metronidazole (Flagyl)500 Mg [id number] Mg PO QID #40 TAB Ref 0 Prov:Molina Young MD 05/31/16 Ciprofloxacin (Cipro)500 Mg [id number] Mg PO BID #20 TAB Ref 0 Prov:Molina Young MD 05/31/16 Reported Medications Pantoprazole 40 Mg Tab40 Mg PO DAILY #0 TAB Ref 0 06/19/16 Tramadol 50 Mg [id number] Mg PO Q6H PRN (PAIN) Ref 0 06/19/16 Hydrocodone-Acetaminophen 7.5-325 mg Tab1 Tab PO Q6HR PRN (PAIN GREATER THAN 7) Ref 0 06/19/16 Discontinued Scripts Pantoprazole 40 Mg Tab40 Mg PO DAILY #30 TAB Prov:Molina Young MD 05/31/16 Oxycodone 5 Mg Tab5 Mg PO Q6HR PRN (pain) #20 TAB Prov:Molina Young MD 05/31/16 Current Medications Medications (Trade) Dose Ordered Sig/Rowan Route Start Time Stop Time Status Last Admin IV Flush 2 ml 2 ml UNSCH PRN IVF 06/19/16 18:30 Multivitamins 10 ml/Folic Acid 1 mg/Sodium Chloride 510.2 ml @ 125 mls/hr Q24H IV 06/19/16 21:00 06/24/16 20:59 06/19/16 20:33 (Thiamine Inj/NS Inj) 101 ml @ 100 mls/hr Q24H IV 06/19/16 21:00 06/22/16 20:59 06/19/16 20:33 (Vitamin B1) 100 mg DAILY PO 06/23/16 09:00 (Romazicon Inj) 0.2 mg Q1M PRN IV PUSH 06/19/16 19:45 (Ativan) 1 mg Q4H PRN PO 06/19/16 19:45 06/20/16 00:44 (Ativan Inj) 1 mg Q4H PRN IV PUSH 06/19/16 19:45 06/19/16 20:34 (Ativan) 2 mg Q2H PRN PO 06/19/16 19:45 (Ativan Inj) 2 mg Q2H PRN IV PUSH 06/19/16 19:45 (Ativan Inj) 2 mg Q1H PRN IV PUSH 06/19/16 19:45 (Ativan Inj) 2 mg Q15M PRN IV PUSH 06/19/16 19:45 (Haldol Inj) 2 mg Q15M PRN IM 06/19/16 19:45 (Protonix Inj) 40 mg Q12H IV PUSH 06/19/16 21:00 06/20/16 09:32 (NS Flush) 2 ml UNSCH PRN FLUSH 06/19/16 19:45 (NS Flush) 2 ml BID FLUSH 06/19/16 21:00 (Zofran Inj) 4 mg Q6H PRN IVP 06/19/16 19:45 06/20/16 09:32 (Dulcolax Supp) 10 mg DAILY PRN [place] 06/19/16 19:45 (Morphine Inj) 2 mg Q3H PRN IV 06/19/16 19:45 06/20/16 11:19 (Roxicodone) 5 mg Q4H PRN PO 06/19/16 19:45 Family History He denies his mother confirms Social History The patient was born and raised in [place], he lives with his father, he is employed part-time in a restaurant, he is single, his highest level of education is 10th grade Patient's Strengths (min. 2) Family support Physical Exam Vital Signs Vital Signs Date Time Temp Pulse Resp B/P Pulse Ox O2 Delivery O2 Flow Rate FiO2 06/20/16 11:56 98.2 89 20 129/69 93 06/19/16 19:37 Room Air I/O 06/19/16 06/19/16 06/20/16 08:00 16:00 00:00 Intake Total 720 ml Output Total 650 ml Balance 70 ml Mental Status Examination Appearance Overweight man, who appears his stated age, [facility], good hygiene, he is calm and cooperative Speech: Unremarkable Orientation: x3 Memory: Unremarkable Thought Process: Logical Thought Content: Unremarkable Hallucination Type: None Attention and Concentration: Good Suicidal Ideation: No Previous Suicide Attempts: No Homicidal Ideation: No Previous Homicide Attempts: No Affect: Good Mood: Appropriate Motor Activity: Normal gait Assessment & Plan Problem List: (1) Alcohol abuse with alcohol-induced mood disorder Assessment & Plan: On psychiatric evaluation today the patient does not present any objective or subjective symptomatology of depression, anxiety, aileen or psychosis. The patient denies suicidal or homicidal ideation, he also denies visual and auditory hallucinations. His mother, present during psychiatric evaluation as patient requested, confirms the patient is a baseline and she doesn't have any safety concern at this moment. Extensive psychoeducation, supportive motivation provided. Patient and mother both verbalized agreement and understanding with medical/psychiatric plan. Patient does not meet criteria for psychiatric admission. Carrion act will be lifted. ICD Code: F10.14 Assessment & Plan Estimated LOS: Danilo Olmstead MD Jun 20, 2016 15:01
[2016-06-23] MEDS ORDERED: THIAMINE HCL 100 MG TAB PO SCH (09:00)
== END 2016-06-20 16:42 | disposition home or self-care (01) ==
LOC: NEPC 18:01 → NEDA 19:30 → NEPHCDU 21:01
PROVIDERS: ADMIT Hospitalist; ATTEND Hospitalist
DX: F10.129 Alcohol abuse with intoxication, unspecified (principal); K70.30 Alcoholic cirrhosis of liver without ascites; F10.14 Alcohol abuse with alcohol-induced mood disorder; F33.1 Major depressive disorder, recurrent, moderate; K70.31 Alcoholic cirrhosis of liver with ascites; K75.9 Inflammatory liver disease, unspecified; K92.2 Gastrointestinal hemorrhage, unspecified; D69.6 Thrombocytopenia, unspecified; D68.9 Coagulation defect, unspecified; R45.851 Suicidal ideations; K12.30 Oral mucositis (ulcerative), unspecified; F12.90 Cannabis use, unspecified, uncomplicated; F19.10 Other psychoactive substance abuse, uncomplicated; F90.9 Attention-deficit hyperactivity disorder, unspecified type; J45.909 Unspecified asthma, uncomplicated; R32 Unspecified urinary incontinence; Y90.8 Blood alcohol level of 240 mg/100 ml or more
CPT/HCPCS: 80053; 80320; 81001; 82948; 83690; 85025; 85610; 85730; 86850; 86900; 86901; 97162; 99285; C9113; G0378; J2060; J2270; J2405; J3411; J7030; J7040

== ENCOUNTER 2016-07-06 13:57 | Emergency (ER) | payer OTHER ==
[~2016-07-06 13:57] MED LIST changes: -CIPR-9 PO; -METR-1 PO; -OXYC-392 PO; +VITA100T2 PO
[2016-07-06 14:01] VITALS: BP 136/74; PULSE 109; RESP 20; TEMP 97.5; O2SAT 94
[2016-07-06] MEDS ORDERED: DILA2TAB2 PO (14:14)
[2016-07-06] MEDS ORDERED: HYDR-4107 PO (14:14)
[2016-07-06] MEDS ORDERED: TRAZ50TA12 PO (14:14)
[2016-07-06] MEDS ORDERED: SODIUM CHLOR 0.9% 1000 ML INJ 1,000 ML IV ONE (14:30)
[2016-07-06 14:56] LABS: AUTOMATED NEUTROPHIL # 2.8 TH/MM3 (1.8-7.7); BASOPHIL # 0.2 TH/MM3 (0-0.2); BASOPHIL % 2.8 % (0.0-2.0); EOSINOPHIL # 0.1 TH/MM3 (0-0.4); EOSINOPHIL % 2.5 % (0.0-4.0); HEMATOCRIT 37.1 % (39.0-51.0); HEMO FLAGS DIFF FINAL; LYMPH % 37.6 % (9.0-44.0); LYMPHOCYTE # 2.2 TH/MM3 (1.0-4.8); MEAN CELL VOLUME 86.5 FL (80.0-100.0); MEAN CORPUSCULAR HEMOGLOBIN 28.6 PG (27.0-34.0); MEAN CORPUSCULAR HGB CONC 33.1 % (32.0-36.0); MONO % 12.2 % (0.0-8.0); NEUT % 44.9 % (16.0-70.0); PLATELET COUNT 118 TH/MM3 (150-450); RED BLOOD COUNT 4.29 MIL/MM3 (4.50-5.90); RED CELL DISTRIBUTION WIDTH 16.4 % (11.6-17.2)
[2016-07-06 15:02] LABS: CHLORIDE 111 MEQ/L (98-107); POTASSIUM 3.7 MEQ/L (3.5-5.1); SODIUM (NA) 147 MEQ/L (136-145)
[2016-07-06 15:06] LABS: ANION GAP 11 MEQ/L (5-15); BICARBONATE 24.6 MEQ/L (21.0-32.0); BLOOD UREA NITROGEN 6 MG/DL (7-18)
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
[2016-07-06 15:09] LABS: ALT (GPT) 151 U/L (12-78); AST (GOT) 224 U/L (15-37); GLOMERULAR FILTRATION RATE 141 ML/MIN (>89)
[2016-07-06 15:11] LABS: TOTAL BILIRUBIN ADULT 1.2 MG/DL (0.2-1.0)
[2016-07-06 15:12] LABS: ALKALINE PHOSPHATASE 87 U/L (45-117)
[2016-07-06 15:19] VITALS: BP 123/69; PULSE 96; RESP 16; O2SAT 96
[2016-07-06 16:20] VITALS: BP 145/92; PULSE 95; RESP 18; O2SAT 94
[2016-07-06 16:52] LABS: AMPHETAMINE, URINE NEG (NEG)
[2016-07-06 16:53] LABS: BARBITURATES, URINE NEG (NEG)
[2016-07-06 16:57] LABS: COCAINE, URINE NEG (NEG)
[2016-07-06 17:04] LABS: ACETAMINOPHEN LESS THAN 2.0 MCG/ML (10.0-30.0)
[2016-07-06 17:50] VITALS: BP 120/80; PULSE 94; RESP 18; TEMP 98.1; O2SAT 95
[2016-07-06 22:18] VITALS: BP 136/71; PULSE 98; RESP 18; O2SAT 95
[2016-07-07 02:00] VITALS: BP 148/70; PULSE 94; RESP 18; O2SAT 99
[2016-07-07 06:19] VITALS: BP 129/80; PULSE 79; RESP 18; O2SAT 97
[2016-07-07] MEDS ORDERED: ONDANSETRON ODT 4 MG TAB PO ONE (06:30)
[2016-07-07] MEDS ORDERED: cloNIDine HCL 0.1 MG TAB PO SCH (06:30)
--- NOTE | 2016-07-07 08:47 | PD.CONS ---
Provisional Diagnosis Admission Date [place] I. Polysubstance dependence, including alcohol, marijuana and opiates, substance- induced mood disorder [place] II. Deferred [place] III. Hepatitis C, cirrhosis [place] IV. Sustained polysubstance abuse [place] V. 55 History of Present Illness Service Psychiatry Consult Requested By Primary Care Physician Non-Staff HPI The patient is a 31-year-old man, domiciled in [place] with his father, unemployed, single, with psychiatric history of substance induced mood disorder, polysubstance dependence, including alcohol, marijuana, opiates, no previous psychiatric hospitalizations, no previous suicidal attempts, medical history of of cirrhosis, hep C, who presents to the ED under Carr[place] Act for suicidal attempt. He initially Pt states that he wants to kill himself and cannot tell me more information. As per carrion act, he states he took dilaudid, hydrocodone and drank vodka to kill himself. Pt has alcohol on breath but is AAOx3. Toxicology is positive for cannabis, BAL is 335. Today on psychiatric evaluation patient is clinically sober, patient stated that the reason he came yesterday "I was too drunk to go back home and I think I want to go to a rehabilitation program". At this moment the patient denies depressive symptoms , he denies anxiety, he denies perceptual disturbances, aileen, he denies suicidal ideation, he denies visual and auditory hallucinations. Patient does report nausea, body pain, lacrimation and sweating "I'm withdrawing from opiates ". Patient endorses daily use of alcohol, marijuana and Dilaudid and hydrocodone. He has been using this street drugs, almost everyday, for many years. He was in a rehabilitation program in the past "but it was unsuccessful ". Patient is fully oriented 3, no gross cognitive impairment observed. No agitation, aggressive behavior, mood dysregulation reported in the J pod. Review of Systems Constitutional: COMPLAINS OF: Diaphoretic episodes, Fatigue, DENIES: Fever, Weight gain, Weight loss, Chills, Dizziness, Change in appetite, Night Sweats Endocrine: DENIES: Heat/cold intolerance, Polydipsia, Polyuria, Polyphagia Ears, nose, mouth, throat: DENIES: Tinnitus, Hearing loss, Vertigo, Nasal discharge, Oral lesions, Throat pain, Hoarseness, Ear Pain, Running Nose, Epistaxis, Sinus Pain, Toothache, Odynophagia Respiratory: DENIES: Apneas, Cough, Snoring, Wheezing, Hemoptysis, Sputum production, Shortness of breath Cardiovascular: COMPLAINS OF: Palpitations, DENIES: Chest pain, Syncope, Dyspnea on Exertion, PND, Lower Extremity Edema, Orthopnea, Claudication Gastrointestinal: COMPLAINS OF: Abdominal pain, Black stools, Bloody stools, Constipation, Diarrhea, Nausea, Vomiting, Difficulty Swallowing, Anorexia Musculoskeletal: DENIES: Joint pain, Muscle aches, Stiffness, Joint Swelling, Back pain, Neck pain Integumentary: DENIES: Abnormal pigmentation, Nail changes, Pruritus, Rash Hematologic/lymphatic: DENIES: Bruising, Lymphadenopathy Immunologic/allergic: DENIES: Eczema, Urticaria Neurologic: DENIES: Abnormal gait, Headache, Localized weakness, Paresthesias, Seizures, Speech Problems, Tremor, Poor Balance Past Family Social History Coded Allergies: Penicillin (Verified Allergy, Severe, Hives, 07/06/16) Reported Medications Trazodone 50 Mg TabUnknown Dose PO HS #30 TAB Ref 0 07/06/16 Hydrocodone-Acetaminophen 5-300 Mg TabUnknown Dose PO Q4H PRN (PAIN) Ref 0 07/06/16 Hydromorphone (Dilaudid)2 Mg TabUnknown Dose PO Q4H PRN (Pain Management) Ref 0 07/06/16 Discontinued Scripts Thiamine (Vitamin B-1)100 Mg Koj624 Mg PO DAILY #30 TAB Prov:Sobia Craig PA-C 06/20/16 Pantoprazole 40 Mg Tab40 Mg PO DAILY #0 TAB Ref 0 Prov:Sobia Craig PA-C 06/20/16 Current Medications Medications (Trade) Dose Ordered Sig/Rowan Route Start Time Stop Time Status Last Admin (Catapres) 0.1 mg Q12HR PO 07/07/16 06:30 07/07/16 06:30 Family History Patient denies Social History Patient was born and raised in [place], he lives in [place] with his father , he is single, unemployed, his highest level of education is 10th grade Physical Exam Vital Signs Vital Signs Date Time Temp Pulse Resp B/P Pulse Ox O2 Delivery O2 Flow Rate FiO2 07/07/16 06:19 79 18 129/80 97 Room Air 07/06/16 17:50 98.1 Mental Status Examination Appearance Overweight man, age appearing, good hygiene, hospital [facility], he is calm and cooperative Speech: Unremarkable Orientation: x3 Memory: Unremarkable Thought Process: Logical Thought Content: Unremarkable Hallucination Type: None Attention and Concentration: Good Suicidal Ideation: No Previous Suicide Attempts: No Homicidal Ideation: No Previous Homicide Attempts: No Judgement: WNL Affect: Good Mood: Appropriate Motor Activity: Normal gait Assessment & Plan Problem List: (1) Substance induced mood disorder Assessment & Plan: At the moment of this evaluation the patient does not present any evidence of objective or subjective depression, anxiety, aileen or perceptual disturbances. He denies suicidal or homicidal ideation. He denies visual and auditory hallucinations. Patient is now clinically sober, stating that the reason he came to the ER was because he was too drunk, BAL was 335 initially, and he just needed To sleep and he was forced by his father to come to the ER looking to be reconnected with rehabilitation program. At this moment the patient does not meet criteria for psychiatric admission. Carrion act will be lifted. However he symptomatology of opiate withdrawal will be treated to relieve symptoms with appropriate medications. Extensive psychoeducation, motivation, support provided. Referral for detox/rehabilitation in [facility] was provided to the patient. Patient will be discharged with his father, who agreed to come to pick him up. ICD Code: F19.94 Assessment & Plan Estimated LOS: Danilo Olmstead MD Jul 07, 2016 08:47
--- NOTE | 2016-07-08 | EKG ---
Date Performed: 07/06/2016 Time Performed: 14:34:42 PTAGE: 31 years EKG: Sinus rhythm Inferior T wave changes are nonspecific Borderline ECG PREVIOUS TRACING : 05/27/2016 17.06 Compared to prior tracing no significant change DOCTOR: Gino Pedraza Interpretating Date/Time 07/07/2016 23:59:25
== END 2016-07-07 08:44 | disposition home or self-care (01) ==
LOC: PHED 13:57 → NEPJ 07-07 08:44
DX: F19.24 Other psychoactive substance dependence with psychoactive substance-induced mood disorder (principal); K74.60 Unspecified cirrhosis of liver; B19.20 Unspecified viral hepatitis C without hepatic coma; I10 Essential (primary) hypertension
CPT/HCPCS: 80053; 80307; 85025; 93005; 96360; 99285; J7030; 80320; 80329; 99281; G0480

== ENCOUNTER 2016-07-09 14:52 | Emergency (ER) | payer OTHER ==
[~2016-07-09] VITALS: Ht 185.4 cm; Wt 106.0 kg
[~2016-07-09 14:52] MED LIST changes: +DILA2TAB2 PO; +HYDR-4107 PO; -PANT40TA3 PO; +TRAZ50TA12 PO; -VITA100T2 PO
[2016-07-09 14:58] VITALS: BP 132/83; PULSE 100; RESP 20; TEMP 98.7; O2SAT 97
--- NOTE | 2016-07-09 15:33 | PD ---
HPI Chief Complaint: Medical Clearance Time Seen by Provider: 15:06 Travel History International Travel<30 days: No Contact w/Intl Traveler<30days: No Traveled to known affect area: No History of Present Illness HPI The 31-year-old man who presents to the emergency department sent from [facility] for medical clearance. His a history of alcoholism, hepatitis, cirrhosis, as well as IV drug use. He presented to [facility] today to get help for his alcoholism. States he last drank several seconds before walking into [facility]. He did fall there he got dizzy and felt faint and fell out of his chair. States he feels perfectly fine now. Recently admitted for GI bleed had endoscopy showed gastritis. He states he has chronic abdominal pain all the time. STATES HE HAS VOMITING AND BLOOD IN HIS VOMIT ALL THE TIME. NO RECENT CHANGE. It is because of the chronic abdominal pain a recent relapse of IV drug use using a couple times, last about 5 days ago. History Past Medical History Narrative Medical ADHD Alcoholism Hepatitis Cirrhosis IV drug use, last a couple days ago Tetanus Vaccination: > 5 Years Social History Alcohol Use: Yes (1.75 LITER VODKA) Tobacco Use: No Allergies-Medications (Allergen,Severity, Reaction): Coded Allergies: Penicillin (Verified Allergy, Severe, Hives, 07/09/16) Reported Meds & Prescriptions Reported Meds & Active Scripts Active Reported Trazodone (Trazodone HCl) 50 Mg Tab Unknown Dose PO HS Hydrocodone-Acetaminophen 5-300 Mg Tab Unknown Dose PO Q4H PRN Dilaudid (Hydromorphone HCl) 2 Mg Tab Unknown Dose PO Q4H PRN Review of Systems Except as stated in HPI: all other systems reviewed are Neg Physical Exam Narrative GENERAL: Well-appearing 31-year-old man, no acute distress. SKIN: Warm and dry. HEAD: Atraumatic. Normocephalic. EYES: Pupils equal and round. No scleral icterus. No injection or drainage. ENT: No nasal bleeding or discharge. Mucous membranes pink and moist. NECK: Trachea midline. No JVD. CARDIOVASCULAR: Regular rate and rhythm. No murmur appreciated. RESPIRATORY: No accessory muscle use. Clear to auscultation. Breath sounds equal bilaterally. GASTROINTESTINAL: Abdomen is flat and soft. A lot of voluntary guarding moderate diffuse tenderness. MUSCULOSKELETAL: No obvious deformities. No clubbing. No cyanosis. No edema. NEUROLOGICAL: Awake and alert. No obvious cranial nerve deficits. Motor grossly within normal limits. Slurred speech. PSYCHIATRIC: Sad mood. Data Data Last Documented VS Vital Signs Date Time Temp Pulse Resp B/P Pulse Ox O2 Delivery O2 Flow Rate FiO2 07/09/16 14:58 98.7 100 20 132/83 97 Orders Complete Blood Count With Diff (07/09/16 15:16) Comprehensive Metabolic Panel (07/09/16 15:16) Iv Access Insert/Monitor (07/09/16 15:16) Drug Screen, Random Urine (07/09/16 15:16) Alcohol (Ethanol) (07/09/16 15:16) Lipase (07/09/16 15:16) Prothrombin Time / Inr (Pt) (07/09/16 15:16) Act Partial Throm Time (Ptt) (07/09/16 15:16) Al-Mag Hy-Si 40-40-4 Mg/Ml Liq (Mag-Al P (07/09/16 15:45) Ondansetron Inj (Zofran Inj) (07/09/16 15:45) Pantoprazole Inj (Protonix Inj) (07/09/16 15:45) Labs Laboratory Tests Test 07/09/16 07/09/16 15:45 16:01 Urine Opiates Screen NEG Urine Barbiturates Screen NEG Urine Amphetamines Screen NEG Urine Benzodiazepines Screen NEG Urine Cocaine Screen NEG Urine Cannabinoids Screen NEG White Blood Count 6.6 TH/MM3 Red Blood Count 4.25 MIL/MM3 Hemoglobin 12.6 GM/DL Hematocrit 37.4 % Mean Corpuscular Volume 88.0 FL Mean Corpuscular Hemoglobin 29.7 PG Mean Corpuscular Hemoglobin 33.8 % Concent Red Cell Distribution Width 17.7 % Platelet Count 95 TH/MM3 Mean Platelet Volume 10.8 FL Neutrophils (%) (Auto) 54.0 % Lymphocytes (%) (Auto) 31.6 % Monocytes (%) (Auto) 10.8 % Eosinophils (%) (Auto) 2.7 % Basophils (%) (Auto) 0.9 % Neutrophils # (Auto) 3.6 TH/MM3 Lymphocytes # (Auto) 2.1 TH/MM3 Monocytes # (Auto) 0.7 TH/MM3 Eosinophils # (Auto) 0.2 TH/MM3 Basophils # (Auto) 0.1 TH/MM3 CBC Comment AUTO DIFF Differential Comment AUTO DIFF CONFIRMED Prothrombin Time 14.0 SEC Prothromb Time International 1.3 RATIO Ratio Activated Partial 29.4 SEC Thromboplast Time Sodium Level 144 MEQ/L Potassium Level 3.7 MEQ/L Chloride Level 109 MEQ/L Carbon Dioxide Level 25.8 MEQ/L Anion Gap 9 MEQ/L Blood Urea Nitrogen 4 MG/DL Creatinine 0.69 MG/DL Estimat Glomerular Filtration 134 ML/MIN Rate Random Glucose 101 MG/DL Calcium Level 8.7 MG/DL Total Bilirubin 1.3 MG/DL Aspartate Amino Transf 179 U/L (AST/SGOT) Alanine Aminotransferase 118 U/L (ALT/SGPT) Alkaline Phosphatase 89 U/L Total Protein 8.8 GM/DL Albumin 3.9 GM/DL Lipase 415 U/L Ethyl Alcohol Level GREATER THAN 300 MG/DL MDM Medical Decision Making Medical Screen Exam Complete: Yes Emergency Medical Condition: Yes Interpretation(s) LABS: CBC remarkable for mild anemia. CMP remarkable for mildly elevated total bili, AST and ALT 179/118 Lipase 4:15 INR 1.3 Alcohol greater than 300 Urine drug screen negative Differential Diagnosis Gastritis, pancreatitis, alcoholism, depression, other Narrative Course Medical decision-making 31-year-old male presents to [facility], sent to ED for medical clearance given GI problems, lightheadedness, recent alcohol intake. We'll check labs, reassess. Diagnosis Primary Impression: Alcohol abuse [facility] Additional Instructions: Follow-up with [facility] for treatment for alcoholism. Patient is medically clear for substance abuse treatment. Med/Other Pt SpecificInfo: Prescription(s) given Disposition: 01 DISCHARGE HOME Condition: Stable Yohannes Lomeli MD Jul 09, 2016 15:33
[2016-07-09] MEDS ORDERED: PANTOPRAZOLE SODIUM 40 MG VIAL IV PUSH ONE (15:45)
[2016-07-09] MEDS ORDERED: ALUMINUM/MAGNESIUM/SIMETH 30 ML CUP PO ONE (15:45)
[2016-07-09] MEDS ORDERED: ONDANSETRON HCL 4 MG/2 ML VIAL IV ONE (15:45)
[2016-07-09 16:40] LABS: AUTOMATED NEUTROPHIL # 3.6 TH/MM3 (1.8-7.7); BASOPHIL # 0.1 TH/MM3 (0-0.2); BASOPHIL % 0.9 % (0.0-2.0); EOSINOPHIL # 0.2 TH/MM3 (0-0.4); EOSINOPHIL % 2.7 % (0.0-4.0); HEMATOCRIT 37.4 % (39.0-51.0); LYMPH % 31.6 % (9.0-44.0); LYMPHOCYTE # 2.1 TH/MM3 (1.0-4.8); MEAN CORPUSCULAR HEMOGLOBIN 29.7 PG (27.0-34.0); MEAN CORPUSCULAR HGB CONC 33.8 % (32.0-36.0); MONO % 10.8 % (0.0-8.0); PLATELET COUNT 95 TH/MM3 (150-450); RED BLOOD COUNT 4.25 MIL/MM3 (4.50-5.90); RED CELL DISTRIBUTION WIDTH 17.7 % (11.6-17.2); WHITE BLOOD COUNT 6.6 TH/MM3 (4.0-11.0)
[2016-07-09 16:41] LABS: HEMO FLAGS AUTO DIFF
[2016-07-09 16:47] LABS: AMPHETAMINE, URINE NEG (NEG); BARBITURATES, URINE NEG (NEG); COCAINE, URINE NEG (NEG)
[2016-07-09 16:49] LABS: APTT (PATIENT) 29.4 SEC (24.3-30.1); INTERNATIONAL NORMALIZED RATIO 1.3 RATIO
[2016-07-09 16:54] LABS: ANION GAP 9 MEQ/L (5-15)
[2016-07-09 16:56] LABS: ALKALINE PHOSPHATASE 89 U/L (45-117); ALT (GPT) 118 U/L (12-78); AST (GOT) 179 U/L (15-37); BICARBONATE 25.8 MEQ/L (21.0-32.0); BLOOD UREA NITROGEN 4 MG/DL (7-18); CHLORIDE 109 MEQ/L (98-107); GLOMERULAR FILTRATION RATE 134 ML/MIN (>89); POTASSIUM 3.7 MEQ/L (3.5-5.1); SODIUM (NA) 144 MEQ/L (136-145); TOTAL BILIRUBIN ADULT 1.3 MG/DL (0.2-1.0)
[2016-07-09 17:18] LABS: SCAN/DIFF AUTO DIFF CONFIRMED
== END 2016-07-09 18:46 | disposition home or self-care (01) ==
LOC: NEPE 14:52
DX: F10.10 Alcohol abuse, uncomplicated (principal); G89.29 Other chronic pain; K92.0 Hematemesis; R10.9 Unspecified abdominal pain; K74.60 Unspecified cirrhosis of liver; B19.20 Unspecified viral hepatitis C without hepatic coma; Y90.8 Blood alcohol level of 240 mg/100 ml or more
CPT/HCPCS: 80053; 80307; 83690; 85025; 85610; 85730; 96374; 96375; 99283; C9113; J2405; 80320